=== PATIENT | female | born 1955 | race Caucasian/White ===

== ENCOUNTER 2017-04-01 19:02 | Emergency (ER) | payer OTHER ==
[~2017-04-01] VITALS: Ht 170.2 cm; Wt 88.0 kg
[~2017-04-01 19:02] MED LIST: ASPIRIN EC81 MG PO; ATENOLOL100 MG PO; AUGMENTIN 875-1 EACH PO; BUPROPION XL300 MG PO; CLONAZEPAM1 MG PO; CLONAZEPAM2 MG PO; EFFEXOR XR150 MG PO; EXCEDRIN MIGRA1 EAC1 PO; FLAX SEED OIL1000 MG PO; FOLIC ACID1 MG PO; GABAPENTIN300 MG PO; GABAPENTIN600 MG PO; GEODON80 MG PO; HYDROCODON-ACE1 EA14 PO; K-TAB10 MEQ PO; LANTUS100 UNITS/ SUB-Q; LEVAQUIN500 MG PO; LEVOTHYROXINE88 MCG PO; LISINOPRIL40 MG PO; LORAZEPAM1 MG PO; MAXZIDE 37.5 MG-1 EA PO; MELOXICAM15 MG PO; MULTIVITAMINS1 EAC7 PO; NORCO 10-325 T1 EACH PO; NORCO 5-325 TA1 EACH PO; NORCO 7.5-3251 EACH PO; NORVASC10 MG PO; NOVOLOG100 UNITS/ SUB-Q; OMEGA 3 1,0001 EACH PO; PENICILLIN V P500 MG PO; PERCOCET 10-321 EACH PO; PERIDEX473 ML PO; PIROXICAM20 MG PO; PREDNISONE20 MG PO; PROTONIX40 MG PO; SIMVASTATIN80 MG PO; SYNTHROID150 MCG PO; SYNTHROID175 MCG PO; TRAMADOL HCL50 MG PO; TRIAMTERENE-HC1 EAC1 PO; VENLAFAXINE HCL75 MG PO; ZOFRAN4 MG PO
[2017-04-20] MEDS ORDERED: CARBIDOPA-LEVO1 EACH PO (13:31)
[2017-04-20] MEDS ORDERED: ROPINIROLE HCL1 MG PO (13:32)
[2017-04-20] MEDS ORDERED: TRAZODONE HCL50 MG NG (13:36)
== END 2017-04-01 22:00 | disposition home or self-care (01) ==
LOC: ED 19:02
DX: M79.89 Other specified soft tissue disorders (principal); S60.00XA Contusion of unspecified finger without damage to nail, initial encounter; R20.0 Anesthesia of skin; F31.9 Bipolar disorder, unspecified; I10 Essential (primary) hypertension; E03.9 Hypothyroidism, unspecified; E78.00 Pure hypercholesterolemia, unspecified; E11.9 Type 2 diabetes mellitus without complications; J44.9 Chronic obstructive pulmonary disease, unspecified; Z98.890 Other specified postprocedural states; Z87.891 Personal history of nicotine dependence; Z90.710 Acquired absence of both cervix and uterus; Z91.048 Other nonmedicinal substance allergy status; Z79.899 Other long term (current) drug therapy; Z79.4 Long term (current) use of insulin; Z79.891 Long term (current) use of opiate analgesic; Z79.82 Long term (current) use of aspirin
CPT/HCPCS: 99282

== ENCOUNTER → 2017-04-20 | Emergency (ER) | payer OTHER ==
[~2017-04-20] VITALS: Ht 170.2 cm; Wt 84.4 kg
[~2017-04-20] MED LIST changes: +CARBIDOPA-LEVO1 EACH PO; +ROPINIROLE HCL1 MG PO; +TRAZODONE HCL50 MG NG
--- NOTE | 2017-04-20 20:04 | EKG ---
[facility] [address] [facility] [place], [place] [address] Signed Sinus bradycardia Otherwise normal ECG When compared with ECG of 24-MAR-2017 13:03, No significant change was found Confirmed by ANUM BIRD MD ([id number]) on 04/20/2017 8:04:42 PM Electronically Signed By: ANUM BIRD MD 04/20/172003 PATIENT NAME: RAFAEL VALADEZ Electrocardiogram DATE OF : 53 PHYSICIAN: ANUM BIRD MD REPORT #: [id number] REPORT IS CONFIDENTIAL AND NOT TO BE RELEASED WITHOUT AUTHORIZATION
== END ==
LOC: ED 12:48
DX: E11.649 Type 2 diabetes mellitus with hypoglycemia without coma (principal); F31.9 Bipolar disorder, unspecified; E78.00 Pure hypercholesterolemia, unspecified; I10 Essential (primary) hypertension; E03.9 Hypothyroidism, unspecified; J44.9 Chronic obstructive pulmonary disease, unspecified; Z79.4 Long term (current) use of insulin; Z79.82 Long term (current) use of aspirin; Z90.710 Acquired absence of both cervix and uterus; Z87.891 Personal history of nicotine dependence; Z88.8 Allergy status to other drugs, medicaments and biological substances; Z79.899 Other long term (current) drug therapy
CPT/HCPCS: 80048; 84484; 85025; 93005; 93010; 96360; 99283; J7030

== ENCOUNTER 2017-07-20 20:32 | Emergency (ER) | payer OTHER ==
[~2017-07-20] VITALS: Ht 170.2 cm; Wt 84.5 kg
--- OUTSIDE RECORDS SUMMARY | ~2017-07-20 | XMS | Clinical Summary ---
Demographics + + + | Address | [address] | | | [place] [address] | + + + | Home Phone | | + + + | Preferred Language | Unknown | + + + | Marital Status | Single | + + + | Faith Affiliation | None | + + + | Race | White | + + + | Ethnic Group | Unknown | + + + Author + + + | Author | [facility] | + + + | Organization | [facility] | + + + | Address | Unknown | + + + | Phone | Unavailable | + + + Care Team Providers + +------+ + | Care Java Lead Engineer Name | Role | Phone | + +------+ + PP | Unavailable | + +------+ + Allergies Not on [...] | + + + Plan of Treatment + + + + + | Health Maintenance | Due Date | Last Done | Comments | + + + + + | HIV Screening | | | | | | 9 | | | + + + + + | Tetanus | | | | | | 3 | | | + + + + + | Cervical Cancer | | | | | Screening | 5 | | | + + + + + | Breast Cancer | | | | | Screening | 4 | | | + + + + + | Colon Cancer | | | | | Screening | 4 | | | + + + + + | Zoster Vaccine | | | | | | 4 | | | + + + + + | IMM Influenza (#1) | | | | | | 7 | | | + + + + + Results Not on filefrom Last 3 Months"
--- OUTSIDE RECORDS SUMMARY | ~2017-07-20 | XMS | Clinical Summary ---
Demographics + + + | Address | [address] | | | [place] [address] | + + + | Home Phone | | + + + | Preferred Language | Unknown | + + + | Marital Status | Single | + + + | Mu-Ism Affiliation | None | + + + [...] Team Providers + +------+ + | Care Ampoule Examiner Name | Role | Phone | + [...]
== END 2017-07-20 22:23 | disposition home or self-care (01) ==
LOC: ED 20:32
DX: E11.649 Type 2 diabetes mellitus with hypoglycemia without coma (principal); F31.9 Bipolar disorder, unspecified; I10 Essential (primary) hypertension; E03.9 Hypothyroidism, unspecified; E78.00 Pure hypercholesterolemia, unspecified; J44.9 Chronic obstructive pulmonary disease, unspecified; Z91.048 Other nonmedicinal substance allergy status; Z79.899 Other long term (current) drug therapy; Z79.4 Long term (current) use of insulin; Z79.82 Long term (current) use of aspirin
CPT/HCPCS: 80053; 85025; 99283

== ENCOUNTER 2017-07-31 15:04 | Emergency (ER) | payer OTHER ==
[~2017-07-31] VITALS: Ht 170.2 cm; Wt 84.4 kg
--- NOTE | 2017-07-31 19:04 | EKG ---
[facility] [address] [place] [address] Signed Normal sinus rhythm with sinus arrhythmia Normal ECG When compared with ECG of 20-APR-2017 12:57, Vent. rate has increased BY 35 BPM Confirmed by ANUM BIRD MD ([id number]) on 07/31/2017 7:04:12 PM Electronically Signed By: ANMU BIRD MD 07/31/17 1904 PATIENT NAME: RORYRAFAELRODRICK ROSENBERG Electrocardiogram DATE OF : 53 PHYSICIAN: ANUM BIRD MD REPORT #: [id number] REPORT IS CONFIDENTIAL AND NOT TO BE RELEASED WITHOUT AUTHORIZATION
== END 2017-07-31 18:06 | disposition home or self-care (01) ==
LOC: ED 15:04
DX: E11.649 Type 2 diabetes mellitus with hypoglycemia without coma (principal); F31.9 Bipolar disorder, unspecified; I10 Essential (primary) hypertension; E03.9 Hypothyroidism, unspecified; E78.00 Pure hypercholesterolemia, unspecified; J44.9 Chronic obstructive pulmonary disease, unspecified; Z90.710 Acquired absence of both cervix and uterus; Z91.048 Other nonmedicinal substance allergy status; Z79.899 Other long term (current) drug therapy; Z79.4 Long term (current) use of insulin; Z79.82 Long term (current) use of aspirin
CPT/HCPCS: 80053; 81001; 84484; 85025; 93005; 93010; 99284

== ENCOUNTER 2017-12-30 13:26 | Emergency (ER) | payer OTHER ==
[~2017-12-30] VITALS: Ht 170.2 cm; Wt 84.5 kg
--- OUTSIDE RECORDS SUMMARY | ~2017-12-30 | XMS | Clinical Summary ---
Demographics + + + | Address | [address] | | | [place] [address] | + + + | Home Phone | | + + + | Preferred Language | Unknown | + + + | Marital Status | Single | + + + | Jewish Affiliation | Unknown | + + + | Race | Unknown | + + + | Ethnic Group | Unknown | + + + Author + + + | Author | [facility] | | | and [place] | + + + | Organization | [facility] | | | and [place] | + + + | Address | Unknown | + + + | Phone | Unavailable | + + + Support + + +---------+ + | Name | Relationship | Address | Phone | + + +---------+ + | Michelle Reyes | ECON | Unknown | | + + +---------+ + Care Team Providers + +------+ + | Care Manager Er Name | Role | Phone | + +------+ + | Antwon Salinas | PP | | | MD | | | + +------+ + Allergies No Known Allergies Current Medications + + +---------+---------+------+------+-------+ | Prescription | Sig. | Disp. | Refills | Star | End | Statu | | | | | | t | Date | s | | | | | | Date | | | + + +---------+---------+------+------+-------+ | levothyroxine | Take 175 mcg by | | | 09/13 | | Activ | | (SYNTHROID) 175 MCG | mouth Daily. | | | 6/20 | | e | | tablet | | | | 18 | | | + + +---------+---------+------+------+-------+ | piroxicam | Take 20 mg by mouth | | | 09/13 | | Activ | | (FELDENE) 20 MG | Daily. | | | 03/02 | | e | | capsule | | | | 18 | | | + + +---------+---------+------+------+-------+ | | Take by mouth | | | 09/13 | | Activ | | triamterene-hydrochl | Daily. | | | 03/02 | | e | | orothiazide | | | | 18 | | | | (MAXZIDE-25) 37.5-25 | | | | | | | | mg per tablet | | | | | | | + + +---------+---------+------+------+-------+ | folic acid 1 mg | Take 1 mg by mouth | | | / | | Activ | | tablet | Daily. | | | 03/02 | | e | | | | | | 18 | | | + + +---------+---------+------+------+-------+ | atenolol | Take 25 mg by mouth | | | /1 | | Activ | | (TENORMIN) 25 mg | Daily. | | | 620 | | e | | tablet | | | | 18 | | | + + +---------+---------+------+------+-------+ | lisinopril | Take 40 mg by mouth | | | 09/13 | | Activ | | (PRINIVIL,ZESTRIL) | Daily. | | | 20 | | e | | 40 MG tablet | | | | 18 | | | + + +---------+---------+------+------+-------+ | simvastatin | Take 40 mg by mouth | | | 09/13 | | Activ | | (ZOCOR) 40 mg tablet | Daily. | | | 620 | | e | | | | | | 18 | | | + + +---------+---------+------+------+-------+ | DULoxetine | Take 60 mg by mouth | | | | | Activ | | (CYMBALTA) [address] | Daily. | | | | | e | | capsule | | | | | | | + + +---------+---------+------+------+-------+ | carbidopa-levodopa | Take by mouth | | 0 | 02/0 | | Activ | | (SINEMET) 10-100 mg | Daily. | | | 20 | | e | | per tablet | | | | 18 | | | + + +---------+---------+------+------+-------+ | clonazePAM | Take 0.5 mg by mouth | | 0 | 01/3 | | Activ | | (KLONOPIN) 0.5 mg | as needed. | | | 20 | | e | | tablet | | | | 18 | | | + + +---------+---------+------+------+-------+ | ADVAIR DISKUS | | | 0 | 11/0 | | Activ | | 250-50 MCG/DOSE | | | | 06/02 | | e | | diskus inhaler | | | | 17 | | | + + +---------+---------+------+------+-------+ | | take 1 or 2 tablets | | 0 | 01/3 | | Activ | | HYDROcodone-acetamin | by mouth every 4 to | | | 0/20 | | e | | ophen (NORCO) | 6 hours if needed | | | 18 | | | | 7.5-325 mg per | | | | | | | | tablet | | | | | | | + + +---------+---------+------+------+-------+ | NOVOLOG 100 | | | | 11/1 | | Activ | | UNIT/ML injection | | | | 6/20 | | e | | | | | | 17 | | | + + +---------+---------+------+------+-------+ | LANTUS 100 UNIT/ML | | | | 12/2 | | Activ | | injection (vial) | | | | 6/20 | | e | | | | | | 17 | | | + + +---------+---------+------+------+-------+ | ATROVENT HFA 17 | | | 0 | 01/1 | | Activ | | MCG/ACT inhaler | | | | 0/20 | | e | | | | | | 18 | | | + + +---------+---------+------+------+-------+ | potassium chloride | | | | 01/1 | | Activ | | (KLOR-CON) 10 mEq | | | | 6/20 | | e | | CR tablet | | | | 18 | | | + + +---------+---------+------+------+-------+ | rOPINIRole | | | 0 | 01/1 | | Activ | | (REQUIP) 1 mg tablet | | | | 0/20 | | e | | | | | | 18 | | | + + +---------+---------+------+------+-------+ | traZODone | | | 0 | 01/2 | | Activ | | (DESYREL) 50 mg | | | | 4/20 | | e | | tablet | | | | 18 | | | + + +---------+---------+------+------+-------+ | busPIRone (BUSPAR) | take 1/2 tablet by | | 0 | 10/15 | | Activ | | 10 MG tablet | mouth twice a day | | | 04/01 | | e | | | for 5 days then take | | | 18 | | | | | 1 table... (REFER | | | | | | | | TO PRESCRIPTION | | | | | | | | NOTES). | | | | | | + + +---------+---------+------+------+-------+ | gabapentin | Take 3 capsules by | 270 | 2 | 11/11 | | Activ | | (NEURONTIN) 300 mg | mouth 3 times daily. | capsule | | 03/02 | | e | | capsule | | | | 18 | | | + + +---------+---------+------+------+-------+ Active Problems + + + | Problem | Noted Date | + + + | Confusion | 11/26/2017 | + + + | Tremor | 10/21/2017 | + + + Encounters +--------+ + + + + | Date | Type | Specialty | Care Team | Description | +--------+ + + + + | 11/30/ | Telephone | | Christen Castellano RN | Results (EEG) | | 2018 | | | | | +--------+ + + + + | 11/26/ | Hospital | | Malaika Martines | Tremor | | 2017 | Encounter | | MD Cain | | +--------+ + + + + | 11/26/ | Office | | Malaika Martines | Tremor (Primary Dx); | | 2017 | Visit | | MD Cain | Confusion | +--------+ + + + + | 10/27/ | Telephone | | Malaika Martines | Lab Results | | 2017 | | | MD Cain | | +--------+ + + + + | 10/22/ | Telephone | | Christen Castellano RN | Lab Results | | 2017 | | | | | +--------+ + + + + | 10/21/ | Office | | Malaika Martines | Tremor | | 2017 | Visit | | MD Cain | | +--------+ + + + + from Last 3 Months Family History + + +------+ + | Medical History | Relation | Name | Comments | + + +------+ + | Dementia | Father | | | + + +------+ + | Heart disease | Mother | | | + + +------+ + + +------+ + + | Relation | Name | Status | Comments | + +------+ + + | Father | | | | + +------+ + + | Mother | | | | + +------+ + + Social History + + + +--------+ + | Tobacco Use | Types | Packs/Day | Years | Date | | | | | Used | | + + + +--------+ + | Former Smoker | Cigarettes | 1.5 | | 1989 | + + + +--------+ + + +---+---+---+ | Smokeless Tobacco: | | | | | Never Used | | | | + +---+---+---+ + + +---------+ + | Alcohol Use | Drinks/We | oz/Week | Comments | | | ek | | | + + +---------+ + | No | | | | + + +---------+ + + + + | Sex Assigned at | Date Recorded | | | | + + + | Not on file | | + + + Last Filed Vital Signs + + + + | Vital Sign | Reading | Time Taken | + + + + | Blood Pressure | 163/87 | 11/26/2017 1027 PDT | + + + + | Pulse | 70 | 11/26/20171026 PDT | + + + + | Temperature | - | - | + + + + | Respiratory Rate | 18 | 11/26/20171026 PDT | + + + + | Oxygen Saturation | 95% | 11/26/20171026 PDT | + + + + | Inhaled Oxygen | - | - | | Concentration | | | + + + + | Weight | 81.9 kg (180 lb 9.6 | 11/26/20171026 PDT | | | oz) | | + + + + | Height | 170.2 cm (5' 7") | 11/26/2017 1027 PDT | + + + + | Body Mass Index | 28.29 | 11/26/20177 PDT | + + + + Plan of Treatment +--------+---------+ + + + | Date | Type | Specialty | Care Team | Description | +--------+---------+ + + + | 01/27/ | Office | | Malaika Martines | | | 2018 | Visit | | MD Cain [address] | | | | | | [place] | | | | | | [place] [address] | | | | | | [phone] | | | | | | | | +--------+---------+ + + + + + + + + | Health Maintenance | Due Date | Last Done | Comments | + + + + + | Hepatitis C | | | | | Screening | 4 | | | + + + + + | Vaccine: | | | | | Dtap/Tdap/Td (1 - | 3 | | | | Tdap) | | | | + + + + + | CERVICAL CANCER | | | | | SCREENING (PAP EVERY | 5 | | | | 3 YEARS 21-64 ) | | | | + + + + + | BREAST CANCER | | | | | SCREENING (MAMM Q2 | 4 | | | | YEARS 50-74) | | | | + + + + + | COLON CANCER | | | | | SCREENING | 4 | | | | (COLONOSCOPY EVERY | | | | | 10 YEARS 50-75) | | | | + + + + + | Vaccine: Zoster (#1) | | | | | | 4 | | | + + + + + | Vaccine: Influenza | | | | | (Season Ended) | 8 | | | + + + + + Results EEG awake or drowsy routine (11/29/2017 0948) + + | Narrative | + + | Malaika Martines MD 11/29/2017 9:49 Name:Jennyfer Cochran :1955 | | DATE OF SERVICE: 11/26/2017 STUDY: ELECTROENCEPHALOGRAM | | INTRODUCTION: This is a digital EEG recording with a record length of 25 | | minutes. The patient is a 62 y.o. year-old female with tremors and confusion. | | BACKGROUND RHYTHM: The patient has a well defined background pattern of 9 | | Hz. This activity is more prominent posteriorly, symmetrical, and | | synchronous. It attenuates with eye opening and returns with eye | | closing. Drowsiness is appreciated by the attenuation and slowing of the patient's | | background activities. ABNORMAL POTENTIALS: No focal slow waves or epileptiform | | discharges are seen. HYPERVENTILATION/PHOTIC STIMULATION: Hyperventilation and | | photic stimulation were without significant effect. IMPRESSION: Normal awake | | and drowsy EEG. Thank you for the opportunity to participate in the care of this | | patient. Malaika Martines MD3/9:48 Electronically signed | + + [facility] Lab Referral (10/21/2017 1443) + + + + | Component | Value | Ref Range | + + + + | Result | Comment: See Media tab for scanned image. | | + + + + + + + | Specimen | Performing Laboratory | + + + | Blood | REFERENCE LAB [facility] [address] | | | [place] [address] | + + + TSH (10/21/2017 1442) + +-------+ + | Component | Value | Ref Range | + +-------+ + | TSH | 1.64 | 0.36 - 3.74 uIU/mL | + +-------+ + + + + | Specimen | Performing Laboratory | + + + | Blood | [facility] [address] [place], | | | [place] [address] | + + + Comprehensive Metabolic Panel (10/21/2017 1442) + + + + | Component | Value | Ref Range | + + + + | NA | 140 | 132 - 143 mmol/L | + + + + | K | 3.8 | 3.3 - 4.9 mmol/L | + + + + | CL | 101 | 95 - 108 mmol/L | + + + + | CO2 | 34 | 23 - 34 mmol/L | + + + + | ANION GAP | 5 (L) | 7 - 16 mmol/L | + + + + | GLUCOSE | 146 (H) | 70 - 110 mg/dL | + + + + | BUN | 15 | 5 - 26 mg/dL | + + + + | Creatinine, | 0.77 | 0.60 - 1.30 mg/dL | | Serum/Plasma | | | + + + + | eGFR if not | >60Comment: GLOMERULAR FILTRATION | >=60 mL/min/1.73m2 | | BERMUDIAN | RATE,ESTIMATED mL/min/1.32g5Yetp than | | | | 60 Chronic kidney disease,if found over | | | | a 3-month period.Less than 15 Kidney | | | | failureFor Americans,multiply the | | | | calculated GFR by 1.21. | | | | | | | | | | + + + + | CALCIUM | 9.1 | 8.3 - 10.0 mg/dL | + + + + | ALBUMIN | 3.6 | 3.0 - 4.5 g/dL | + + + + | Bilirubin Total | 0.5 | 0.0 - 1.2 mg/dL | + + + + | Total protein | 7.0 | 6.6 - 8.5 g/dL | + + + + | AST | 26 | 0 - 38 U/L | + + + + | ALT | 26 | 14 - 59 U/L | + + + + | ALK PHOS | 73 | 46 - 116 U/L | + + + + | GLOBULIN | 3.4 | g/dL | + + + + | Albumin/Globulin | 1.1 | | | ratio | | | + + + + | BUN/CREA | 19.5 | 7.0 - 24.0 | + + + + + + + | Specimen | Performing Laboratory | + + + | Blood | [facility] [address] [place], | | | [place] [address] | + + + from Last 3 Months Insurance + +--------+ +--------+ +---------+ | Payer | Benefi | Subscriber | Type | Phone | Address | | | t Plan | ID | | | | | | / | | | | | | | Group | | | | | + +--------+ +--------+ +---------+ | [employer] | MODA | [phone] | Medica | [phone] | | MEDICAID HMO | HEALTH | | id | [id number] | | | | [place] | | | | | | | [place]MO [place] | | | | | + +--------+ +--------+ +---------+ + +--------+ +--------+ + + | Guarantor Name | Accoun | Relation to | Date | Phone | Billing Address | | | t Type | Patient | of | | | | | | | | | | + +--------+ +--------+ + + | JENNYFER COCHRAN | Person | Self [birth year] | Home: | [address] | | | al/Fam | | 4 [phone] | [address] [place] | | | [place] | | | [phone] | + +--------+ +--------+ + +
--- OUTSIDE RECORDS SUMMARY | ~2017-12-30 | XMS | Encounter Summary ---
Demographics + + + | Address | [address] | | | [place] [address] | + + + | Home Phone | | + + + | Preferred Language | Unknown | + + + | Marital Status | Single | + + + | Presybeterian Affiliation | Unknown | + + + | Race | Unknown | + + + | Ethnic Group | Unknown | + + + Author + + + | Author | [facility] | | | and [place] | + + + | Organization | [facility] | | | [...] Team Providers + +------+ + | Care Delinquency Counselor Name | Role | Phone | + +------+ + | Antwon Salinas | PCP | | | MD | | | + +------+ + Encounter Details +--------+ + + + + | Date | Type | Department | Care Team | Description | +--------+ + + + + | 11/26/ | [facility] | Malaika Martines | Tremor | | 2018 | Encounter | HOSPITAL RESPIRATORY | MD Cain [address] | | | | | THERAPY [address] | [place] | | | | | [address] [place], [place] | [place] [address] | | | | | [address] | [phone] | | | | | [phone] | | | +--------+ + + + + Social History + + + [...] on file | | + + + as of this encounter Medications at Time of Discharge + + +---------+---------+ + + | Medication | Sig. | Disp. | Refills | Start | End Date | | | | | | Date | | + + +---------+---------+ + + | ADVAIR DISKUS | | | 0 | 07/22/20 | | | 250-50 MCG/DOSE | | | | 17 | | | diskus inhaler | | | | | | + + +---------+---------+ + + | atenolol | Take 25 mg by mouth | | | 09/28/19 | | | (TENORMIN) 25 mg | Daily. | | | 18 | | | tablet | | | | | | + + +---------+---------+ + + | ATROVENT HFA 17 | | | 0 | 09/22/19 | | | MCG/ACT inhaler | | | | 18 | | + + +---------+---------+ + + | busPIRone (BUSPAR) | take 1/2 tablet by | | 0 | 11/09/19 | | | 10 MG tablet | mouth twice a day | | | 18 | | | | for 5 days then take | | | | | | | 1 table... (REFER | | | | | | | TO PRESCRIPTION | | | | | | | NOTES). | | | | | + + +---------+---------+ + + | carbidopa-levodopa | Take by mouth | | 0 | 10/18/19 | | | (SINEMET) 10-100 mg | Daily. | | | 18 | | | per tablet | | | | | | + + +---------+---------+ + + | clonazePAM | Take 0.5 mg by mouth | | 0 | 10/13/19 | | | (KLONOPIN) 0.5 mg | as needed. | | | 18 | | | tablet | | | | | | + + +---------+---------+ + + | DULoxetine | Take 60 mg by mouth | | | | | | (CYMBALTA) [address] | Daily. | | | | | | capsule | | | | | | + + +---------+---------+ + + | folic acid 1 mg | Take 1 mg by mouth | | | 09/28/19 | | | tablet | Daily. | | | 18 | | + + +---------+---------+ + + | gabapentin | Take 3 capsules by | 270 | 2 | 11/27/19 | | | (NEURONTIN) 300 mg | mouth 3 times daily. | capsule | | 18 | | | capsule | | | | | | + + +---------+---------+ + + | | take 1 or 2 tablets | | 0 | 10/12/19 | | | HYDROcodone-acetamin | by mouth every 4 to | | | 18 | | | ophen (NORCO) | 6 hours if needed | | | | | | 7.5-325 mg per | | | | | | | tablet | | | | | | + + +---------+---------+ + + | LANTUS 100 UNIT/ML | | | | 09/07/20 | | | injection (vial) | | | | 17 | | + + +---------+---------+ + + | levothyroxine | Take 175 mcg by | | | 09/28/19 | | | (SYNTHROID) 175 MCG | mouth Daily. | | | 18 | | | tablet | | | | | | + + +---------+---------+ + + | lisinopril | Take 40 mg by mouth | | | 09/28/19 | | | (PRINIVIL,ZESTRIL) | Daily. | | | 18 | | | 40 MG tablet | | | | | | + + +---------+---------+ + + | NOVOLOG 100 | | | | 07/29/20 | | | UNIT/ML injection | | | | 17 | | + + +---------+---------+ + + | piroxicam | Take 20 mg by mouth | | | 09/28/19 | | | (FELDENE) 20 MG | Daily. | | | 18 | | | capsule | | | | | | + + +---------+---------+ + + | potassium chloride | | | | 01/16/20 | | | (KLOR-CON) 10 mEq | | | | 18 | | | CR tablet | | | | | | + + +---------+---------+ + + | rOPINIRole | | | 0 | 09/22/19 | | | (REQUIP) 1 mg tablet | | | | 18 | | + + +---------+---------+ + + | simvastatin | Take 40 mg by mouth | | | 09/28/19 | | | (ZOCOR) 40 mg tablet | Daily. | | | 18 | | + + +---------+---------+ + + | traZODone | | | 0 | 10/06/19 | | | (DESYREL) 50 mg | | | | 18 | | | tablet | | | | | | + + +---------+---------+ + + | | Take by mouth | | | 09/28/19 | | | triamterene-hydrochl | Daily. | | | 18 | | | orothiazide | | | | | | | (MAXZIDE-25) 37.5-25 | | | | | | | mg per tablet | | | | | | + + +---------+---------+ + + as of this encounter Progress Notes Harjit Esqueda, ANCELMO - 11/26/2017 1704 PDTStandard awake and drowsy EEG performed. Patient tolerated test well. in this encounter Plan of Treatment +--------+---------+ + + + | Date | Type | Specialty | Care Team | Description | +--------+---------+ + + + | 01/27/ | Office | Neurology | Malaika Martines | | | 2018 | Visit | | MD Cain [address] | | | | | | [place] | | | | | | [place] [address] | | | | | | [phone] | | | | | | | | +--------+---------+ + + + as of this encounter Results EEG awake or drowsy routine (11/29/2017 [...] of this | | patient. Malaika Martines MD11/29/20179:48 Electronically signed | + + in this encounter Visit Diagnoses + + | Diagnosis | + + | Tremor | + + | Abnormal involuntary movements | + +"
--- OUTSIDE RECORDS SUMMARY | ~2017-12-30 | XMS | Encounter Summary ---
Demographics + + + | Address | [address] | | | [place] [address] | + + + | Home Phone | | + + + | Preferred Language | Unknown | + + + | Marital Status | Single | + + + | Amish Affiliation | Unknown | + + + | Race | Unknown | + + + | Ethnic Group | Unknown | + + + Author + + + | Author | [facility] | | | and [place] | + + + | Organization | [facility] | | | [...] Team Providers + +------+ + | Care Glazier Helper Name | Role | Phone | + +------+ + | Antwon Salinas | PCP | | | MD | | | + +------+ + Reason for Visit + + + | Reason | Comments | + + + | Lab Results | | + + + Encounter Details +--------+ + + + + | Date | Type | Department | Care Team | Description | +--------+ + + + + | 10/27/ | Telephone | [place] [facility] | Malaika Martines | Lab Results | | 2018 | | HOSPITAL NEUROLOGY | MD Cain [address] | | | | | CLINIC [address] | [place] | | | | | [address] [place], | [place] [address] | | | | | [place] [address] | [phone] | | | | | [phone] | | | +--------+ + + + [...] + + + as of this encounter Plan of Treatment +--------+---------+ + + + | Date | Type | Specialty | Care Team | Description | +--------+---------+ + + + | 01/27/ | Office | Neurology | Malaika Martines | | | 2018 | Visit | | MD Cain [address] | | | | | | [place] | | | | | | [place] [address] | | | | | | [phone] | | | | | | | | +--------+---------+ + + + as of this encounter Visit Diagnoses Not on filein this encounter"
--- OUTSIDE RECORDS SUMMARY | ~2017-12-30 | XMS | Clinical Summary ---
Demographics + + + | Address | [address] | | | [place] [address] | + + + | Home Phone | | + + + | Preferred Language | Unknown | + + + | Marital Status | Single | + + + | Roman Catholic Affiliation | Unknown | + + + | Race | Unknown | + + + | Ethnic Group | Unknown | + + + Author + + + | Author | [facility] | | | and [place] | + + + | Organization | [facility] | | | and [...] Team Providers + +------+ + | Care Wire Rope Sling Maker Name | Role | Phone | + [...] | | | | | [place] [address] | | | | | | [phone] | | | | | | | [...] Martines MD3/9:48 Electronically signed | + + [facility] [place] [place] Lab Referral (10/21/2017 1443) + + + + | Component | Value | Ref Range | + + + + | Result | Comment: See Media tab for scanned image. | | + + + + + + + | Specimen | Performing Laboratory | + + + | Blood | REFERENCE LAB [facility] [address] | | | [place] [address] | + + + TSH (10/21/2017 1442) + +-------+ + | Component | Value | Ref Range | + +-------+ + | TSH | 1.64 | 0.36 - 3.74 uIU/mL | + +-------+ + + + + | Specimen | Performing Laboratory | + + + | Blood | [facility] [address] [place], | | | [place] [address] | + + + Comprehensive Metabolic Panel [...] GLOMERULAR FILTRATION | >=60 mL/min/1.73m2 | | MEXICAN | RATE,ESTIMATED mL/min/1.62f0Acfe than | | | | 60 Chronic [...] | + + + | Blood | [facility] [address] [place], | | | [place] [address] | + + + from Last 3 [...] Self | [birth year] | Home: | [address] | | | al/Fam | | 4 [phone] [address] [place] | | | [place] | | | [phone] | [address] | + +--------+ +--------+ + +
--- OUTSIDE RECORDS SUMMARY | ~2017-12-30 | XMS | Encounter Summary ---
Demographics + + + | Address | [address] | | | [place] [address] | + + + | Home Phone | | + + + | Preferred Language | Unknown | + + + | Marital Status | Single | + + + | Baptist Affiliation | Unknown | + + + | Race | Unknown | + + + | Ethnic Group | Unknown | + + + Author + + + | Author | [facility] | | | and Earlana | + + + | Organization | [facility] | | | [...] Team Providers + +------+ + | Care Cartographic Aide Name | Role | Phone | + [...] + + | 10/22/ | Telephone | [place] [facility] | Christen Castellano RN | Lab Results | | 2018 | | [facility] NEUROLOGY | | | | | | CLINIC [address] | | | | | | [address] [place], | | | | | | [place] [address] | | | | | | [phone] | | | +--------+ + + + [...] [address] | | | | | | [place], [place] [address] | | | | | | [phone] | | | | | | | | +--------+---------+ + + + as of this encounter Visit Diagnoses Not on filein this encounter"
--- OUTSIDE RECORDS SUMMARY | ~2017-12-30 | XMS | Encounter Summary ---
Demographics + + + | Address | [address] | | | [place] [address] | + + + | Home Phone | | + + + | Preferred Language | Unknown | + + + | Marital Status | Single | + + + | Buddhist Affiliation | Unknown | + + + | Race | Unknown | + + + | Ethnic Group | Unknown | + + + Author + + + | Author | [facility] | | | and Earlana | + + + | Organization | [facility] | | | [...] Team Providers + +------+ + | Care Community Health Advisor Name | Role | Phone | + [...] | | | | | | [place] [address] | | | | | | [phone] | | | +--------+ + + + [...] | | | | | [place] [address] | | | | | | [phone] | | | | | | | | +--------+---------+ + + + as of this encounter Visit Diagnoses Not on filein this encounter"
--- OUTSIDE RECORDS SUMMARY | ~2017-12-30 | XMS | Clinical Summary ---
Demographics + + + | Address | [address] | | | [address] | | | [place] [address] | + + + | Home Phone | | + + + | Preferred Language | Unknown | + + + | Marital Status | Single | + + + | Judaism Affiliation | Unknown | + + + | Race | Unknown | + + + | Ethnic Group | Unknown | + + + Author + + + | Author | [facility] | + + + | Organization | [facility] | + + + | Address | Unknown | + + + | Phone | Unavailable | + + + Support + + + + + | Name | Relationship | Address | Phone | + + + + + | Julius Cochran [place] | ECON | [address] | | | | | [place] [facility] [place] | | | | | [address] | | + + + + + Care Team Providers + +------+ + | Care Project Controls Scheduler Name | Role | Phone | + +------+ + | [facility], [facility] | PP | Unavailable | | Community [...]
--- OUTSIDE RECORDS SUMMARY | ~2017-12-30 | XMS | Encounter Summary ---
Demographics + + + | Address | [address] | | | [place] [address] | + + + | Home Phone | | + + + | Preferred Language | Unknown | + + + | Marital Status | Single | + + + | Adventist Affiliation | Unknown | + + + | Race | Unknown | + + + | Ethnic Group | Unknown | + + + Author + + + | Author | [facility] | | | and Earlana | + + + | Organization | [facility] | | | [...] Team Providers + +------+ + | Care Pasteuriser Operator Name | Role | Phone | [...] | [address], | [place] [address] | | | | | [place] [address] | [phone] | | | | | [phone] | | | +--------+ + + + [...] | | | | | [place] [address] | | | | | | [phone] | | | | | | | | +--------+---------+ + + + as of this encounter Visit Diagnoses Not on filein this encounter"
--- OUTSIDE RECORDS SUMMARY | ~2017-12-30 | XMS | Encounter Summary ---
Demographics + + + | Address | [address] | | | [place] [address] | + + + | Home Phone | | + + + | Preferred Language | Unknown | + + + | Marital Status | Single | + + + | Tenriism Affiliation | Unknown | + + + | Race | Unknown | + + + | Ethnic Group | Unknown | + + + Author + + + | Author | [facility] | | | and Earlana | + + + | Organization | [facility] | | [...] Team Providers + +------+ + | Care Editor City Name | Role | Phone | + +------+ + | Antwon Salinas | PCP | | | MD | | | + +------+ + Reason for Referral Diagnostic/Screening (Routine) + +--------+ + + + + | Status | Reason | Specialty | Diagnoses / | Referred By | Referred To | | | | | Procedures | Contact | Contact | + +--------+ + + + + | Authorized | | Radiology | Diagnoses | [facility], | [facility] | | | | | Tremor | Malaika Barlow | HOSPITAL | | | | | Confusion | MD [address] | | | | | Procedures | [place] | [place] | | | | | MRI Brain wo | [address], [address] | [place], [place] | | | | | Contrast | [place], | [address] | | | | | | [place] [address] | Phone: | | | | | | Phone: | [phone] | | | | | | [phone] | Fax: | | | | | | Fax: | [phone] | | | | | | [phone] | | + +--------+ + + + + Reason for Visit +---------+ + | Reason | Comments | +---------+ + | Tremors | | +---------+ + Encounter Details +--------+---------+ + + + | Date | Type | Department | Care Team | Description | +--------+---------+ + + + | 11/26/ | Office | [place] [facility] | Malaika Martines | Tremor (Primary Dx); | | 2018 | Visit | HOSPITAL NEUROLOGY | MD Cain [address] | Confusion | | | | CLINIC [address] | [place] | | | | | [address] [place], | [place] [address] | | | | | [place] [address] | [phone] | | | | | [phone] | | | +--------+---------+ + + + [...] | Body Mass Index | 28.29 | 11/26/2017 1027 PDT | + + + + in this encounter Instructions Patient Instructions - Malaika Martines MD - 11/26/2017 1100 PDTYou have the following tests/procedures ordered. Brain MRI no contrast at [facility] Medication Instructions: Discontinue carbidopa/levodopa; decrease gabapentin to 900 mg 2 ti mes a day *Any questions, please call Dr. Martines's office at Patient advised of their right to have diagnostic testing, health care treatment, and/or se rvices at a facility other than [facility]. in this encounter Progress Notes Malaika Martines MD - 11/26/2017 1100 PDTFormatting of this note may be different from the original. Patient: Jennyfer Cochran Medical Record: [id number] Date of Services: 11/26/2017 Referring Doctor: Antwon Salinas MD Chief Complaint Patient presents with Tremors HISTORY OF PRESENT ILLNESS: This is a follow-up on a 62-year-old female who comes back to the neurology clinic amber g her tremors. I first met her on 10/21/2017. She presented with tremors which she thought was secondary to stress and anxiety. Blood work done was remarkable for increased glucose. TSH was normal. Liver and function tests were normal. Gabapentin level was appropriate for her current dose. However, she tel ls me now that she is taking gabapentin 1200 mg 2 times a day rather than 2 times a day. Her MRI was not approved by her insurance company. She has not had her EEG. The patient also has not RLS and she is currently on Sinemet and Requip at bedtime. She fe els that Sinemet is not helpful but Requip is. REVIEW OF SYSTEMS: General: Positive for weight loss HEENT: Positive for vision changes and tinnitus Cardiovascular: Positive for shortness of breath on exertion Respiratory: No cough Gastrointestinal: No vomiting Musculoskeletal: Positive for joint pains and stiffness, back pain, neck pain Skin: No rash Hematologic: No [...] Daily. ATROVENT HFA 17 MCG/ACT inhaler 0 busPIRone (BUSPAR) 10 MG tablet take 1/2 tablet by mouth twice a day for 5 days then ta ke 1 table... (REFER TO PRESCRIPTION NOTES). 0 carbidopa-levodopa (SINEMET) 10-100 mg per tablet Take by mouth Daily. 0 clonazePAM (KLONOPIN) 0.5 mg tablet Take 0.5 mg by mouth as needed. 0 DULoxetine (CYMBALTA) [address] capsule Take 60 mg by mouth Daily. folic acid 1 mg tablet Take 1 mg by mouth Daily. gabapentin (NEURONTIN) 300 mg capsule Take 3 capsules by mouth 3 times daily. 270 capsu le 2 HYDROcodone-acetaminophen (NORCO) 7.5-325 mg per tablet take [...] disease Mother Dementia Father PHYSICAL EXAMINATION: BP 163/87 | Pulse 70 | Resp 18 | Ht 1.702 m (5' 7") | Wt 81.9 kg (180 lb 9.6 oz) | SpO 2 95% | BMI 28.29 kg/m Neck is supple. Lungs are clear. Heart sounds are within normal limits. Abdomen is soft and non-tender, There is no extremity cyanosis. NEUROLOGIC EXAMINATION: MENTAL STATUS: The patient is awake, alert, and oriented to time, place, and person. Lina steve is fluent. Though memory is intact and she is able to follow commands, during the conver sation, I feel that she is somewhat confused about ongoing events. CRANIAL NERVES: Funduscopy revealed distinct disc margins. There are no exudates or hemor rhages noted. Pupils are 3-4 mm, equal and reactive to light and accommodation. Extraocular muscle movements are intact. There are no visual field cuts. There is no nystagmus. There is no facial asymmetry. Facial sensation is intact. Palate elevates symmetrically. Streng th in the trapezius and sternocleidomastoid muscles is normal. Tongue is midline on protrusi on. MOTOR EXAMINATION: Strength is 5/5 throughout. Tone is normal. SENSORY EXAMINATION: Intact to light touch, pin prick, vibration, and proprioception. The re is no extinction on double simultaneous stimulation. DEEP TENDON REFLEXES: 1+ and symmetric. PLANTAR RESPONSES: Downgoing bilaterally GAIT: Gait and station are normal. CEREBELLAR EXAMINATION: There is no dysmetria on gigeaa-mm-kzyb test. Miscellaneous: There is no cogwheeling noted. There is a very mild intermittent upper extr emity postural tremor. IMPRESSION: 1. Tremors, likely anxiety related 2. Confusion 3. RLS 4. Schizophrenia PLAN AND RECOMMENDATIONS: I went over the patient's blood work results with her again. I am reordering her brain MRI without contrast as I feel the patient is confused. She will have her EEG today. She will start taking Sinemet at night. I am also decreasing her gabapentin dose to 900 mg twice a day. I will see her back in 2 months. More than 50% of this 30 minute visit was spent on going over her plan of care. Thank you for the opportunity to participate in the care of this patient. Malaika Martines MD11/26/201710:59 Electronically signed This note was transcribed using [...] | | | | | [address] [place] | | | | | | [place] [address] | | | | | | [phone] | | | | | | | | +--------+---------+ + + + + +--------+ + + | Name | Priori | Associated Diagnoses | Order Schedule | | | ty | | | + +--------+ + + | MRI Brain wo Contrast | Routin | Tremor Confusion | Expected: | | | e | | 11/26/2017, Expires: | | | | | 11/26/2018 | + +--------+ + + as of this encounter Visit Diagnoses + + | Diagnosis | + + | Tremor - Primary | + + | Abnormal involuntary movements | + + | Confusion | + + | Unspecified psychosis | + +
--- OUTSIDE RECORDS SUMMARY | ~2017-12-30 | XMS | Clinical Summary ---
Demographics + + + | Address | [address] | | | [address] | | | [place] [address] | + + + | Home Phone | | + + + | Preferred Language | Unknown | + + + | Marital Status | Single | + + + | Confucianism Affiliation | Unknown | + + + | Race | Unknown | + + + | Ethnic Group | Unknown | + + + Author + + + | Author | [facility] | + + + | Organization | [facility] | + + + | Address | Unknown | + + + | Phone | Unavailable | + + + Support + + + + + | Name | Relationship | Address | Phone | + + + + + | Julius Cochran [place] | ECON | [address] | | | | | [place] [facility] [place] | | | | | [address] | | + + + + + Care Team Providers + +------+ + | Care Employment Evaluator/Case Manager Name | Role | Phone | + +------+ + | [facility], [facility] | PP | Unavailable | | Community [...]
--- OUTSIDE RECORDS SUMMARY | ~2017-12-30 | XMS | Clinical Summary ---
Demographics + + + | Address | [address] | | | [place] [address] | + + + | Home Phone | | + + + | Preferred Language | Unknown | + + + | Marital Status | Single | + + + | Christian Affiliation | NON | + + + [...] Team Providers + +------+ + | Care Water Pumper Name | Role | Phone | + +------+ + PP | Unavailable | + +------+ + Source Comments JOAQUINA is fully live on both [facility] and [facility] InPatient.[facility] Allergies No Known Allergies Current Medications [...]
--- OUTSIDE RECORDS SUMMARY | ~2017-12-30 | XMS | Encounter Summary ---
Demographics + + + | Address | [address] | | | [place] [address] | + + + | Home Phone | | + + + | Preferred Language | Unknown | + + + | Marital Status | Single | + + + | Anglican Affiliation | Unknown | + + + | Race | Unknown | + + + | Ethnic Group | Unknown | + + + Author + + + | Author | [facility] | | | and Earlana | + + + | Organization | [facility] | [...] Team Providers + +------+ + | Care Scientific Writer Name | Role | Phone | + [...] | | | | | | [place] [address] | | | | | | [phone] | | | +--------+ + + + [...] | | | | | [place] [address] | | | | | | [phone] | | | | | | | | +--------+---------+ + + + as of this encounter Visit Diagnoses Not on filein this encounter"
--- OUTSIDE RECORDS SUMMARY | ~2017-12-30 | XMS | Encounter Summary ---
Demographics + + + | Address | [address] | | | [place] [address] | + + + | Home Phone | | + + + | Preferred Language | Unknown | + + + | Marital Status | Single | + + + | Spiritism Affiliation | Unknown | + + + | Race | Unknown | + + + | Ethnic Group | Unknown | + + + Author + + + | Author | [facility] | | | and Earlana | + + + | Organization | [facility] | | | [...] Providers + +------+ + | Care Coal Getter Name | Role | Phone | + [...] | [address], [place] | [place] [address] | | | | | [address] | [phone] | | | | | [phone] | | | +--------+ + + + [...] of this encounter Progress Notes Harjit Esqueda, ACNELMO - 11/26/2017 1704 PDTStandard awake and drowsy [...] | | | | | [place] [address] | | | | | | [phone] | | | | | | | [...]
--- OUTSIDE RECORDS SUMMARY | ~2017-12-30 | XMS | Encounter Summary ---
Demographics + + + | Address | [address] | | | [place] [address] | + + + | Home Phone | | + + + | Preferred Language | Unknown | + + + | Marital Status | Single | + + + | Episcopalian Affiliation | Unknown | + + + | Race | Unknown | + + + | Ethnic Group | Unknown | + + + Author + + + | Author | [facility] | | | and Earlana | + + + | Organization | [facility] | | | [...] Team Providers + +------+ + | Care Oracle Ebs Consultant Name | Role | Phone | [...] | | | | | Procedures | [place], | [place], [place] | | | | | Evaluate and | [place] | [address] Phone: | | | | | Treat | [address] | [phone] | | | | | | Phone: | Fax: | | | | | | [phone] | [phone] | | | | | | Fax: | | | | | | | [phone] | | +--------+ + + + + + Encounter Details +--------+---------+ + + + | Date | Type | Department | Care Team | Description | +--------+---------+ + + + | 10/21/ | Office | [place] [facility] | Malaika Martines | Tremor | | 2018 | Visit | HOSPITAL NEUROLOGY | MD [address] | | | | | CLINIC [address] | [place] [address] | | | | | [address], | [place] [address] | | | | | [place] [address] | [phone] | | | | | [phone] | | | +--------+---------+ + + + [...] Instructions - Malaika Martines MD - 10/21/2017 134 PSTYou have the following tests/procedures ordered. At [facility] Radiology : Brain MRI EEG routine Blood work at [facility]: CMP, TSH, gabapentin level *Any questions, please call Dr. Martines's office at Patient advised of their right to have diagnostic testing, health care treatment, and/or se rvices at a facility other than [facility], [facility]. in this encounter Progress Notes Malaika Martines MD - 10/21/2017 6869 PSTFormatting of this note may be different from the original. Patient: Jennyfer Cochran Medical Record: [id number] Date of Services: 10/21/2017 Referring Doctor: Antwon [...] CEREBELLAR EXAMINATION: There is no dysmetria on lafais-oy-vsgz test. Miscellaneous: During this visit, the patient [...] | | | | | [place] [address] | | | | | | [phone] | | | | | | | [...] GLOMERULAR FILTRATION | >=60 mL/min/1.73m2 | | SALVADOREAN | RATE,ESTIMATED mL/min/1.11m2Uaai than | | | | 60 Chronic [...] | + + + | Blood | [facility] [address] [place], | | | [place] [address] | + + + TSH (10/21/2017 1442) + +-------+ + | Component | Value | Ref Range | + +-------+ + | TSH | 1.64 | 0.36 - 3.74 uIU/mL | + +-------+ + + + + | Specimen | Performing Laboratory | + + + | Blood | [facility] [address] [place], | | | [place] [address] | + + + in this encounter Visit Diagnoses + + | Diagnosis | + + | Tremor | + + | Abnormal involuntary movements | + +
--- OUTSIDE RECORDS SUMMARY | ~2017-12-30 | XMS | Encounter Summary ---
Demographics + + + | Address | [address] | | | [place] [address] | + + + | Home Phone | | + + + | Preferred Language | Unknown | + + + | Marital Status | Single | + + + | Pentecostal Affiliation | Unknown | + + + | Race | Unknown | + + + | Ethnic Group | Unknown | + + + Author + + + | Author | [facility] | | | and Earlana | + + + | Organization | [facility] | | | [...] Team Providers + +------+ + | Care Pens And Pencils Dipper Name | Role | Phone | + [...] Lab Results | | 2018 | | [facility] NEUROLOGY | | | | | | CLINIC [address] | | | | | | [address] [place], | | | | | | [place] [address] | | | | | | [phone] | | | +--------+ + + + [...] | | | | | [place], [place] [address] | | | | | | [phone] | | | | | | | | +--------+---------+ + + + as of this encounter Visit Diagnoses Not on filein this encounter"
--- OUTSIDE RECORDS SUMMARY | ~2017-12-30 | XMS | Encounter Summary ---
Demographics + + + | Address | [address] | | | [place] [address] | + + + | Home Phone | | + + + | Preferred Language | Unknown | + + + | Marital Status | Single | + + + | Temple Affiliation | Unknown | + + + | Race | Unknown | + + + | Ethnic Group | Unknown | + + + Author + + + | Author | [facility] | | | and Earlana | + + + | Organization | [facility] | | | [...] Team Providers + +------+ + | Care Freight Clerk Name | Role | Phone | + [...] | | Contrast | [place], | [address] | | | | | | [place] [address] | Phone: | | | | | | Phone: | [phone] | | | | | | [phone] | Fax: | | | | | | Fax: | [phone] | | | | | | [phone] | | + +--------+ + + + [...] | [address], | [place] [address] | | | | | [place] [address] | [phone] | | | | | [phone] | | | +--------+---------+ + + + [...] tests/procedures ordered. Brain MRI no contrast at [facility] Medication Instructions: Discontinue carbidopa/levodopa; decrease gabapentin to 900 mg 2 ti mes a day *Any questions, please call Dr. Martines's office at Patient advised of their right to have diagnostic testing, health care treatment, and/or se rvices at a facility other than [facility]. in this encounter Progress Notes Malaika Martines MD - 11/26/2017 1100 PDTFormatting of this note may be different from the original. Patient: Jennyfer Cochran Medical Record: [id number] Date of Services: 11/26/2017 Referring Doctor: Antwon [...] CEREBELLAR EXAMINATION: There is no dysmetria on ibeplt-go-xcwb test. Miscellaneous: There is no cogwheeling noted. [...] | | | | | [place] [address] | | | | | | [phone] | | | | | | | [...]
--- OUTSIDE RECORDS SUMMARY | ~2017-12-30 | XMS | Clinical Summary ---
Demographics + + + | Address | [address] | | | [place] [address] | + + + | Home Phone | | + + + | Preferred Language | Unknown | + + + | Marital Status | Single | + + + | Orthodoxy Affiliation | NON | + + + [...] Team Providers + +------+ + | Care Safe And Vault Mechanic Name | Role | Phone | + +------+ + PP | Unavailable | + +------+ + Source Comments JOAQUINA is fully live on both [facility] and [facility] InPatient.[facility] Allergies No Known Allergies Current Medications [...]
--- OUTSIDE RECORDS SUMMARY | ~2017-12-30 | XMS | Encounter Summary ---
Demographics + + + | Address | [address] | | | [place] [address] | + + + | Home Phone | | + + + | Preferred Language | Unknown | + + + | Marital Status | Single | + + + | Rastafari Affiliation | Unknown | + + + | Race | Unknown | + + + | Ethnic Group | Unknown | + + + Author + + + | Author | [facility] | | | and Earlana | + + + | Organization | [facility] | | | [...] Team Providers + +------+ + | Care Glove Cleaner Name | Role | Phone | + [...] | | | | | Procedures | [place], | [place], [place] | | | | | Evaluate and | [place] | [address] Phone: | | | | | Treat | [address] | [phone] | | | | | | Phone: | Fax: | | | | | | [phone] | [phone] | | | | | | Fax: | | | | | | | [phone] | | +--------+ + + + + [...] | [address], | [place] [address] | | | | | [place] [address] | [phone] | | | | | [phone] | | | +--------+---------+ + + + [...] PSTYou have the following tests/procedures ordered. At [facility] Radiology : Brain MRI EEG routine Blood work at [facility]: CMP, TSH, gabapentin level *Any questions, please call Dr. Martines's office at Patient advised of their right to have diagnostic testing, health care treatment, and/or se rvices at a facility other than [facility], [facility]. in this encounter Progress Notes Malaika Martines MD - 10/21/2017 8194 PSTFormatting of this note may be different from the original. Patient: Jennyfer Cochran Medical Record: [id number] Date of Services: 10/21/2017 Referring Doctor: Antwon [...] CEREBELLAR EXAMINATION: There is no dysmetria on hgkbbr-bl-wrne test. Miscellaneous: During this visit, the patient [...] | | | | | [place] [address] | | | | | | [phone] | | | | | | | [...] GLOMERULAR FILTRATION | >=60 mL/min/1.73m2 | | AFGHAN | RATE,ESTIMATED mL/min/1.32m4Wifa than | | | | 60 Chronic [...] | + + + | Blood | [facility] [address] [place], | | | [place] [address] | + + + TSH (10/21/2017 1442) + +-------+ + | Component | Value | Ref Range | + +-------+ + | TSH | 1.64 | 0.36 - 3.74 uIU/mL | + +-------+ + + + + | Specimen | Performing Laboratory | + + + | Blood | [facility] [address] [place], | | | [place] [address] | + + + in this encounter Visit Diagnoses + + | Diagnosis | + + | Tremor | + + | Abnormal involuntary movements | + +
[~2017-12-30 13:26] MED LIST changes: -TRAZODONE HCL50 MG NG; +TRAZODONE HCL50 MG PO
--- NOTE | 2017-12-30 20:52 | EKG ---
[facility] [address] [facility] [place] [address] Signed Normal sinus rhythm Normal ECG When compared with ECG of 31-JUL-2017 15:19, Nonspecific T wave abnormality now evident in Anterior leads Confirmed by ANUM BIRD MD ([id number]) on 12/30/2017 8:52:28 PM Electronically Signed By: ANUM BIRD MD 12/30/172051 PATIENT NAME: RORYRAFAELRODRICK ROSENBERG Electrocardiogram DATE OF : 53 PHYSICIAN: ANUM BIRD MD REPORT #: [id number] REPORT IS CONFIDENTIAL AND NOT TO BE RELEASED WITHOUT AUTHORIZATION
== END 2017-12-30 16:20 | disposition home or self-care (01) ==
LOC: ED 13:26
DX: E11.65 Type 2 diabetes mellitus with hyperglycemia (principal); F31.9 Bipolar disorder, unspecified; I10 Essential (primary) hypertension; E03.9 Hypothyroidism, unspecified; E78.00 Pure hypercholesterolemia, unspecified; J44.9 Chronic obstructive pulmonary disease, unspecified; Z91.048 Other nonmedicinal substance allergy status; Z79.899 Other long term (current) drug therapy; Z79.4 Long term (current) use of insulin; Z79.82 Long term (current) use of aspirin
CPT/HCPCS: 70450; 71045; 80053; 81001; 83605; 84484; 85025; 93005; 93010; 96374; 99284; J7030

== ENCOUNTER 2018-01-02 18:51 | Inpatient (IN) | payer OTHER ==
[~2018-01-02] VITALS: Ht 170.2 cm; Wt 72.7 kg
--- OUTSIDE RECORDS SUMMARY | ~2018-01-02 | XMS | Clinical Summary ---
Demographics + + + | Address | [address] | | | [address] | | | [place] [address] | + + + | Home Phone | | + + + | Preferred Language | Unknown | + + + | Marital Status | Single | + + + | Confucianist Affiliation | Unknown | + + + | Race | Unknown | + + + | Ethnic Group | Unknown | + + + Author + + + | Author | [facility] [facility] | + + + | Organization | [facility] | + + + | Address | Unknown | + + + | Phone | Unavailable | + + + Support + + + + + | Name | Relationship | Address | Phone | + + + + + | Julius Cochran Or | ECON | [address] | | | | | [place] [facility] [place] | | | | | [address] | | + + + + + Care Team Providers + +------+ + | Care Slitting Machine Operator Helper Name | Role | Phone | + +------+ + | [facility], [facility] | PP | Unavailable | | Community | | | + +------+ + Allergies Not on File Current Medications Not on file Active Problems Not on file Social History + +-------+ +--------+------+ | Tobacco Use | Types | Packs/Day | Years | Date | | | | | Used | | + +-------+ +--------+------+ | Never Assessed | | | | | + +-------+ +--------+------+ + + + | Sex Assigned at | Date Recorded | | | | + + + | Not on file | | + + + Plan of Treatment Not on file Results Not on filefrom Last 3 Months"
--- OUTSIDE RECORDS SUMMARY | ~2018-01-02 | XMS | Clinical Summary ---
Demographics + + + | Address | [address] | | | [place] [address] | + + + | Home Phone | | + + + | Preferred Language | Unknown | + + + | Marital Status | Single | + + + | Samaritan Affiliation | Unknown | + + + | Race | Unknown | + + + | Ethnic Group | Unknown | + + + Author + + + | Author | [facility] | | | and [place]ana | + + + | Organization | [facility] | | | [...] Team Providers + +------+ + | Care Hand Molder And Caster Name | Role | Phone | + [...] | | | | | [place] [address] | | | | | | [phone] | | | | | | | [...] care of this | | patient. Malaika Martines, 11/29/20179:48 Electronically signed | + + [facility] Referral (10/21/2017 1443) + + + + | Component | Value | Ref Range | + + + + | Result | Comment: See Media tab for scanned image. | | + + + + + + + | Specimen | Performing Laboratory | + + + | Blood | REFERENCE LAB [facility] [address] [address] | | | [place] [address] | + + + TSH (10/21/2017 1442) + +-------+ + | Component | Value | Ref Range | + +-------+ + | TSH | 1.64 | 0.36 - 3.74 uIU/mL | + +-------+ + + + + | Specimen | Performing Laboratory | + + + | Blood | [place] [facility] [address] [place], | | | [place] [address] | + + + Comprehensive Metabolic Panel (10/21/20171441) + + + + | Component | [...] GLOMERULAR FILTRATION | >=60 mL/min/1.73m2 | | KYRGYZ | RATE,ESTIMATED mL/min/1.54i9Scqy than | | | | 60 Chronic [...] | + + + | Blood | [facility] [address] [place], | | | [place] [address] | + + + from Last 3 [...] | MODA | xxxxxxxx | Medica | [phone] | | MEDICAID HMO | HEALTH [...] Self | [birth year] Home: | [address] | | | al/Fam | | 1955 | [phone] | [address] [place] | | | dexter | | | [address][birth year] | [address] | + +--------+ +--------+ + +
--- OUTSIDE RECORDS SUMMARY | ~2018-01-02 | XMS | Clinical Summary ---
Demographics + + + | Address | [address] | | | [address] | | | [place] [address] | + + + | Home Phone | | + + + | Preferred Language | Unknown | + + + | Marital Status | Single | + + + | Mormon Affiliation | Unknown | + + + | Race | Unknown | + + + | Ethnic Group | Unknown | + + + Author + + + | Author | [facility] [employer] [facility] | + + + | Organization | [facility] [employer] [facility] | + + + | Address | Unknown | + + + | Phone | Unavailable | + + + Support + + + + + | Name | Relationship | Address | Phone | + + + + + | Julius Cochran [place] | ECON | [address] | | | | | [place] [facility] [place] | | | | | [address] | | + + + + + Care Team Providers + +------+ + | Care Ruling Machine Set Up Operator Name | Role | Phone | + +------+ + | [facility], [facility] | PP | Unavailable | | Community [...]
--- OUTSIDE RECORDS SUMMARY | ~2018-01-02 | XMS | Encounter Summary ---
Demographics + + + | Address | [address] | | | [place] [address] | + + + | Home Phone | | + + + | Preferred Language | Unknown | + + + | Marital Status | Single | + + + | Jainism Affiliation | Unknown | + + + | Race | Unknown | + + + | Ethnic Group | Unknown | + + + Author + + + | Author | [facility] | | | and Earlana | + + + | Organization | [facility] | | | and [...] Team Providers + +------+ + | Care Coal Weigher Name | Role | Phone | + [...] | [address] [place], [place] | [place] [address] | | | | | [address] | [phone] | | | | | [phone] | | | +--------+ + + + [...] | | | | | [place] [address] | | | | | | [phone] | | | | | | | [...]
--- OUTSIDE RECORDS SUMMARY | ~2018-01-02 | XMS | Encounter Summary ---
Demographics + + + | Address | [address] | | | [place] [address] | + + + | Home Phone | | + + + | Preferred Language | Unknown | + + + | Marital Status | Single | + + + | Christianity Affiliation | Unknown | + + + | Race | Unknown | + + + | Ethnic Group | Unknown | + + + Author + + + | Author | [facility] | | | and [place] | + + + | Organization | [facility] | | [...] Team Providers + +------+ + | Care Lay Out Drafter Name | Role | Phone | + +------+ + | Antwon Salinas | PCP | | | MD | | | + +------+ + Reason for Visit +---------+ + | Reason | Comments | +---------+ + | Results | EEG | +---------+ + Encounter Details +--------+ + + + + | Date | Type | Department | Care Team | Description | +--------+ + + + + | 11/30/ | Telephone | [place] [facility] | Christen Castellano RN | Results (EEG) | | 2018 | | HOSPITAL [facility]OLOGY | | | | | | CLINIC [address] | | | | | | [address] [place], | | | | | | [place] [address] | | | | | | [phone] | | | +--------+ + + + [...] | | | | | [place] [address] | | | | | | [phone] | | | | | | | | +--------+---------+ + + + as of this encounter Visit Diagnoses Not on filein this encounter"
--- OUTSIDE RECORDS SUMMARY | ~2018-01-02 | XMS | Clinical Summary ---
Demographics + + + | Address | [address] | | | [address] | | | [place] [address] | + + + | Home Phone | | + + + | Preferred Language | Unknown | + + + | Marital Status | Single | + + + | Adventist Affiliation | Unknown | + + + | Race | Unknown | + + + | Ethnic Group | Unknown | + + + Author + + + | Author | [facility] | + + + | Organization | [facility] | + + + | Address | Unknown | + + + | Phone | Unavailable | + + + Support + + + + + | Name | Relationship | Address | Phone | + + + + + | Julius Cochran [place] | ECON | [address] | | | | | [place] [facility] [place] | | | | | [address] | | + + + + + Care Team Providers + +------+ + | Care Fuel Retrofitting Technician Name | Role | Phone | + +------+ + | [facility], [facility] | PP | Unavailable | | Community [...]
--- OUTSIDE RECORDS SUMMARY | ~2018-01-02 | XMS | Encounter Summary ---
Demographics + + + | Address | [address] | | | [place] [address] | + + + | Home Phone | | + + + | Preferred Language | Unknown | + + + | Marital Status | Single | + + + | Congregational Affiliation | Unknown | + + + | Race | Unknown | + + + | Ethnic Group | Unknown | + + + Author + + + | Author | [facility] | | | and Earl[place] | + + + | Organization | [facility] | | | [...] Team Providers + +------+ + | Care Medical Asst Name | Role | Phone | + +------+ + | Antwon Salinas | PCP | | | MD | | | + +------+ + Reason for Visit +---------+ + | Reason | Comments | +---------+ + | Tremors | | +---------+ + Evaluate & Treat (Routine) +--------+ + + + + + | Status | Reason | Specialty | Diagnoses / | Referred By | Referred To | | | | | Procedures | Contact | Contact | +--------+ + + + + + | Closed | Specialty | Neurology | Diagnoses | Rita, | Conrad, | | | Services | | Other | Antwon | Malaika Barlow, | | | Required | | specified | MD Grady | MD Hernadez | | | | | forms of | [address], | | | | | tremor | [address] | [place] | | | | | Procedures | [place], | [place], [place] | | | | | Evaluate and | [place] | [address] Phone: | | | | | Treat | [address] | [phone] | | | | | | Phone: | Fax: | | | | | | [phone] | [phone] | | | | | | Fax: | | | | | | | [phone] | | +--------+ + + + + + Encounter Details +--------+---------+ + + + | Date | Type | Department | Care Team | Description | +--------+---------+ + + + | 10/21/ | Office | [facility] [facility] | Malaika Martines | Tremor | | 2018 | Visit | HOSPITAL NEUROLOGY | MD Cain [address] | | | | | CLINIC [address] | [place] | | | | | [address] [place], | [place] [address] | | | | | [place] [address] | [phone] | | | | | [phone] | | | +--------+---------+ + + + Social History + + [...] + + + as of this encounter Last Filed Vital Signs + + + + | Vital Sign | Reading | Time Taken | + + + + | Blood Pressure | 145/93 | 10/21/2017 1317 PST | + + + + | Pulse | 72 | 10/21/20171316 PST | + + + + | Temperature | - | - | + + + + | Respiratory Rate | 18 | 10/21/20171316 PST | + + + + | Oxygen Saturation | 94% | 10/21/20171316 PST | + + + + | Inhaled Oxygen | - | - | | Concentration | | | + + + + | Weight | 78.2 kg (172 lb 6.4 | 10/21/20171316 PST | | | oz) | | + + + + | Height | 162.6 cm (5' 4") | 10/21/2017 1317 PST | + + + + | Body Mass Index | 29.59 | 10/21/2017 1317 PST | + + + + in this encounter Instructions Patient Instructions - Malaika Martines MD - 10/21/2017 1342 PSTYou have the following tests/procedures ordered. At [facility] Radiology : Brain MRI EEG routine Blood work at [facility]: CMP, TSH, gabapentin level *Any questions, please call Dr. Martines's office at Patient advised of their right to have diagnostic testing, health care treatment, and/or se rvices at a facility other than [facility], [facility]. in this encounter Progress Notes Malaika Martines MD - 10/21/2017 6945 PSTFormatting of this note may be different from the original. Patient: Jennyfer Cochran Medical Record: [id number] Date of Services: 10/21/2017 Referring Doctor: Antwon Salinas MD Chief Complaint Patient presents with Tremors HISTORY OF PRESENT ILLNESS: The patient is a 62-year-old female who is referred to me because of tremors. The referral apparently came from a nurse practitioner in a mental health facility where the patient goe s. The patient is somewhat a poor historian. She is me that she has had these tremors for roque e time. She claims that she feels restless and tends to clench her jaw and hands. These tr emors typically are brought on by stress and anxiety and she is able to stop them. She does not find them debilitating. During her visit with me, she kept repeating that they are str ess related and are not involuntarily. At some point, she was taken off Geodon to see if her tremors improved but they did not. S he is on Klonopin for anxiety and finds the medication useful for her tremors as well. She does have a diagnosis of restless leg syndrome and is currently on both Sinemet and Req uip which she takes on a when necessary basis at bedtime. REVIEW OF SYSTEMS: General: Positive for weight loss HEENT: Positive for vision changes and tinnitus Cardiovascular: Positive portions of breath on exertion Respiratory: No cough Gastrointestinal: No vomiting Musculoskeletal: Positive for joint pains and stiffness, back pain, and neck pain Skin: No rash Hematologic: No bruising Neurologic: Positive for memory loss and disorientation Psychiatric: Positive for anxiety Genitourinary: Positive for slow flow PAST MEDICAL HISTORY: Past Medical History: Diagnosis Date COPD (chronic obstructive pulmonary disease) (HCC) Diabetes mellitus (HCC) Hypertension Hypothyroidism Schizophrenia (HCC) PAST SURGICAL HISTORY: Past Surgical History: Procedure Laterality Date CHOLECYSTECTOMY MEDICATIONS: Current Outpatient Prescriptions Medication Sig Dispense Refill ADVAIR DISKUS 250-50 MCG/DOSE diskus inhaler 0 atenolol (TENORMIN) 25 mg tablet Take 25 mg by mouth Daily. ATROVENT HFA 17 MCG/ACT inhaler 0 carbidopa-levodopa (SINEMET) 10-100 mg per tablet Take by mouth Daily. 0 clonazePAM (KLONOPIN) 0.5 mg tablet Take 0.5 mg by mouth as needed. 0 DULoxetine (CYMBALTA) [address] capsule Take 60 mg by mouth Daily. folic acid 1 mg tablet Take 1 mg by mouth Daily. gabapentin (NEURONTIN) 600 MG tablet Take 1,200 mg by mouth 3 times daily. HYDROcodone-acetaminophen (NORCO) 7.5-325 mg per tablet take 1 or 2 tablets by mouth ev hailey 4 to 6 hours if needed 0 LANTUS 100 UNIT/ML injection (vial) levothyroxine (SYNTHROID) 175 MCG tablet Take 175 mcg by mouth Daily. lisinopril (PRINIVIL,ZESTRIL) 40 MG tablet Take 40 mg by mouth Daily. NOVOLOG 100 UNIT/ML injection piroxicam (FELDENE) 20 MG capsule Take 20 mg by mouth Daily. potassium chloride (KLOR-CON) 10 mEq CR tablet rOPINIRole (REQUIP) 1 mg tablet 0 simvastatin (ZOCOR) 40 mg tablet Take 40 mg by mouth Daily. traZODone (DESYREL) 50 mg tablet 0 triamterene-hydrochlorothiazide (MAXZIDE-25) 37.5-25 mg per tablet Take by mouth Daily . No current facility-administered medications for this visit. ALLERGIES: No Known Allergies Social History Social History Marital status: Single Spouse name: N/A Number of children: N/A Years of education: N/A Occupational History Not on file. Social History Main Topics Smoking status: Former Smoker Packs/day: 1.50 Types: Cigarettes Start date: 1989 Quit date: 2007 Smokeless tobacco: Never Used Alcohol use No Drug use: No Sexual activity: Not on file Other Topics Concern Not on file Social History Narrative No narrative on file Family History Problem Relation Age of Onset Heart disease Mother Dementia Father PHYSICAL EXAMINATION: BP (!) 145/93 | Pulse 72 | Resp 18 | Ht 1.626 m (5' 4") | Wt 78.2 kg (172 lb 6.4 oz) | SpO2 94% | BMI 29.59 kg/m Neck is supple. Lungs are clear. Heart sounds are within normal limits. Abdomen is soft and non-tender, There is no extremity cyanosis. NEUROLOGIC EXAMINATION: MENTAL STATUS: The patient is awake, alert, and oriented to time, place, and person. Spee ch is fluent. Memory appears mildly impaired. CRANIAL NERVES: Funduscopy revealed distinct disc margins. Pupils are 3-4 mm, equal and r eactive to light and accommodation. Extraocular muscle movements are intact. There are no vi sual field cuts. There is no nystagmus. There is no facial asymmetry. Facial sensation is intact. Palate elevates symmetrically. Strength in the trapezius and sternocleidomastoid m uscles is normal. Tongue is midline on protrusion. MOTOR EXAMINATION: Strength is 5/5 throughout. I did not note any cogwheeling. SENSORY EXAMINATION: Intact to light touch, pin prick. DEEP TENDON REFLEXES: 1+ and symmetric. PLANTAR RESPONSES: Downgoing bilaterally GAIT: Gait and station are normal. CEREBELLAR EXAMINATION: There is no dysmetria on phujiu-ol-rwwp test. Miscellaneous: During this visit, the patient appeared anxious at times and was somewhat sh aky. She shook her legs intermittently but was able to stop it when I asked her to. IMPRESSION: 1. Tremors, possibly anxiety related 2. Known restless legs syndrome, currently on Requip and Sinemet 3. Schizophrenia PLAN AND RECOMMENDATIONS: I agree with the patient that her tremors are likely anxiety related. She has no features of parkinsonism at the moment. She was able to control her tremors. Nevertheless, I am ordering a neurologic workup. These will include a brain MRI, EEG, and blood work for CMP, TSH and gabapentin level. We did call for her recent labs and was told that the last time she had blood drawn was in March of last year. I went over her medication list and recommend no changes. I will continue to follow her. She is to come back to the neurology clinic in 4 weeks. Thank you for the opportunity to participate in the care of this patient. Malaika Martines MD10/21/201714:17 Electronically signed This note was transcribed using voice recognition software. There may be speech recognitio n errors which escaped detection during review. in this encounter Plan of Treatment +--------+---------+ + + + | Date | Type | Specialty | Care Team | Description | +--------+---------+ + + + | 01/27/ | Office | Neurology | Malaika Martines | | | 2017 | Visit | | MD Cain [address], [place] | | | | | | [place] [address] | | | | | | [phone] | | | | | | | [...] Martines MD11/29/20179:48 Electronically signed | + + Comprehensive Metabolic Panel (10/21/2017 1442) [...] GLOMERULAR FILTRATION | >=60 mL/min/1.73m2 | | MONGOLIAN | RATE,ESTIMATED mL/min/1.89x3Mrzj than | | | | 60 Chronic [...] | + + + | Blood | [facility] [address] [place], | | | [place] [address] | + + + TSH (10/21/2017 1442) + +-------+ + | Component | Value | Ref Range | + +-------+ + | TSH | 1.64 | 0.36 - 3.74 uIU/mL | + +-------+ + + + + | Specimen | Performing Laboratory | + + + | Blood | [facility] [address] [place], | | | [place] [address] | + + + in this encounter Visit Diagnoses + + | Diagnosis | + + | Tremor | + + | Abnormal involuntary movements | + +
--- OUTSIDE RECORDS SUMMARY | ~2018-01-02 | XMS | Encounter Summary ---
Demographics + + + | Address | [address] | | | [place] [address] | + + + | Home Phone | | + + + | Preferred Language | Unknown | + + + | Marital Status | Single | + + + | Restorationism Affiliation | Unknown | + + + | Race | Unknown | + + + | Ethnic Group | Unknown | + + + Author + + + | Author | [facility] | | | and [place] | + + + | Organization | [facility] | | | [...] Team Providers + +------+ + | Care Steam Fitter Supervisor Name | Role | Phone | + [...] | [address] [place], | [place] [address] | | | | | [place] [address] | [phone] | | | | | [phone] | | | +--------+ + + + [...] | | | | | [place] [address] | | | | | | [phone] | | | | | | | | +--------+---------+ + + + as of this encounter Visit Diagnoses Not on filein this encounter"
--- OUTSIDE RECORDS SUMMARY | ~2018-01-02 | XMS | Clinical Summary ---
Demographics + + + | Address | [address] | | | [place] [address] | + + + | Home Phone | | + + + | Preferred Language | Unknown | + + + | Marital Status | Single | + + + | Adventist Affiliation | NON | + + + | Race | White | + + + | Ethnic Group | Not or | + + + Author + + + | Author | NON REVENUE LOCATIONS | + + + | Organization | NON REVENUE LOCATIONS | + + + | Address | Unknown | + + + | Phone | Unavailable | + + + Support + + +---------+ + | Name | Relationship | Address | Phone | + + +---------+ + | REKHA VALADEZ | ECON | Unknown | | + + +---------+ + Care Team Providers + +------+ + | Care Process Designer Name | Role | Phone | + +------+ + PP | Unavailable | + +------+ + Source Comments JOAQUINA is fully live on both [facility] Ambulatory and [facility] InPatient.[facility] Allergies No Known Allergies Current Medications + + + +---------+------+------+-------+ | Prescription | Sig. | Disp. | Refills | Star | End | Statu | | | | | | t | Date | s | | | | | | Date | | | + + + +---------+------+------+-------+ | venlafaxine XR 150 | Take 150 mg by mouth | | | | | Activ | | mg Oral | two times daily. | | | | | e | | capsule,extended | | | | | | | | release 24hr | | | | | | | + + + +---------+------+------+-------+ | insulin glargine | Inject 40 Units | | | | | Activ | | 100 unit/mL | under the skin | | | | | e | | Subcutaneous | (SUBC) once daily at | | | | | | | Solution | bedtime. | | | | | | + + + +---------+------+------+-------+ | | Take 1 Tab by mouth | | | | | Activ | | HYDROcodone-acetamin | every four hours as | | | | | e | | ophen 7.5-325 mg | needed. Not to | | | | | | | Oral tablet | exceed 10 tablets | | | | | | | | per any 24 hour | | | | | | | | period. (Not to | | | | | | | | exceed 3250 mg of | | | | | | | | acetaminophen from | | | | | | | | all products per 24 | | | | | | | | hour period.) | | | | | | + + + +---------+------+------+-------+ | insulin aspart | Inject under the | | | | | Activ | | (NOVOLOG) 100 | skin (SUBC) three | | | | | e | | unit/mL Subcutaneous | times daily before | | | | | | | Solution | meals. | | | | | | + + + +---------+------+------+-------+ | piroxicam 20 mg | Take 20 mg by mouth | | | | | Activ | | Oral capsule | once daily. | | | | | e | + + + +---------+------+------+-------+ | simvastatin 80 mg | Take 80 mg by mouth | | | | | Activ | | Oral | once daily in the | | | | | e | | tabletIndications: | evening. | | | | | | | hypercholesterolemia | Indications: | | | | | | | | HYPERCHOLESTEROLEMIA | | | | | | + + + +---------+------+------+-------+ | clonazePAM 2 mg | Take 2 mg by mouth | | | | | Activ | | Oral tablet | once daily at | | | | | e | | | bedtime as needed. | | | | | | + + + +---------+------+------+-------+ | amLODIPine 10 mg | Take 10 mg by mouth | | | | | Activ | | Oral tablet | once daily. | | | | | e | + + + +---------+------+------+-------+ | atenolol 100 mg | Take 100 mg by mouth | | | | | Activ | | Oral | once daily. | | | | | e | | tabletIndications: | Indications: | | | | | | | hypertension | HYPERTENSION | | | | | | + + + +---------+------+------+-------+ | folic acid 1 mg | Take 1 mg by mouth | | | | | Activ | | Oral tablet | once daily. | | | | | e | + + + +---------+------+------+-------+ | levothyroxine 175 | Take 175 mcg by | | | | | Activ | | mcg Oral | mouth once daily. | | | | | e | | tabletIndications: | Indications: | | | | | | | hypothyroidism | HYPOTHYROIDISM | | | | | | + + + +---------+------+------+-------+ | lisinopril 40 mg | Take 40 mg by mouth | | | | | Activ | | Oral tablet | once daily. | | | | | e | + + + +---------+------+------+-------+ | potassium chloride | Take 10 mEq by mouth | | | | | Activ | | SR 10 mEq Oral | once daily. | | | | | e | | tablet,ER | | | | | | | | particles/crystals | | | | | | | + + + +---------+------+------+-------+ | | Take 1 Cap by mouth | | | | | Activ | | triamterene-hydrochl | once daily. | | | | | e | | orothiazide 37.5-25 | Indications: | | | | | | | mg Oral | HYPERTENSION | | | | | | | capsuleIndications: | | | | | | | | hypertension | | | | | | | + + + +---------+------+------+-------+ | buPROPion XL 300 | Take 300 mg by mouth | | | | | Activ | | mg Oral tablet | once daily in the | | | | | e | | extended release 24 | morning. | | | | | | | hr | | | | | | | + + + +---------+------+------+-------+ | gabapentin 300 mg | Take 600 mg by mouth | | | | | Activ | | Oral capsule | three times daily. | | | | | e | + + + +---------+------+------+-------+ | ziprasidone 80 mg | Take 80 mg by mouth | | | | | Activ | | Oral capsule | two times daily with | | | | | e | | | meals. | | | | | | + + + +---------+------+------+-------+ | Desvenlafaxine | Take 100 mg by mouth | | | | | Activ | | (PRISTIQ) 100 mg | once daily. | | | | | e | | Oral tablet extended | | | | | | | | release 24 hr | | | | | | | + + + +---------+------+------+-------+ | oxyCODONE, | Take 1 Tab by mouth | 30 Tab | 0 | 06/1 | | Activ | | immediate release, 5 | every six hours as | | | 3/20 | | e | | mg Oral tablet | needed for moderate | | | 13 | | | | | pain. | | | | | | + + + +---------+------+------+-------+ Active Problems Not on file Social History + +-------+ +--------+------+ | Tobacco Use | Types | Packs/Day | Years | Date | | | | | Used | | + +-------+ +--------+------+ | Former Smoker | | | | | + +-------+ +--------+------+ + + +---------+ + | Alcohol Use [...] + + + | Blood Pressure | 157/91 | 03/10/2013 12:41 PM PDT | + + + + | Pulse | 64 | 03/10/2013 12:09 PM PDT | + + + + | Temperature | 36.5 C (97.7 F) | 03/10/2013 11:42 AM PDT | + + + + | Respiratory Rate | 12 | 03/10/2013 12:09 PM PDT | + + + + | Oxygen Saturation | 100% | 03/10/2013 12:41 PM PDT | + + + + | Inhaled Oxygen | - | - | | Concentration | | | + + + + | Weight | 86.2 kg (190 lb) | 02/23/2013 9:54 AM PDT | + + + + | Height | 170.2 cm (5' 7") | 02/23/2013 9:54 AM PDT | + + + + | Body Mass Index | 29.76 | 02/23/2013 9:54 AM PDT | + + + + Plan of Treatment + + + + + | Health Maintenance | Due Date | Last Done | Comments | + + + + + | INFLUENZA VACCINE | | | | | (FLU SHOT) | 8 | | | + + + + + Results Not on filefrom Last 3 Months
--- OUTSIDE RECORDS SUMMARY | ~2018-01-02 | XMS | Encounter Summary ---
Demographics + + + | Address | [address] | | | [place] [address] | + + + | Home Phone [...] Author + + + | Author | [facility] | | | and Earlana | + + + | Organization | [facility] | | | [...] Team Providers + +------+ + | Care Multiple Spindle Router Operator Name | Role | Phone | [...] | [address], | [place] [address] | | | | | [place] [address] | [phone] | | | | | [phone] | | | +--------+ + + + [...] | | | | | [place] [address] | | | | | | [phone] | | | | | | | | +--------+---------+ + + + as of this encounter Visit Diagnoses Not on filein this encounter"
--- OUTSIDE RECORDS SUMMARY | ~2018-01-02 | XMS | Clinical Summary ---
Demographics + + + | Address | [address] | | | [place] [address] | + + + | Home Phone | | + + + | Preferred Language | Unknown | + + + | Marital Status | Single | + + + | Protestant Affiliation | NON | + + + [...] Team Providers + +------+ + | Care Blow Mold Technician Name | Role | Phone | + +------+ + PP | Unavailable | + +------+ + Source Comments JOAQUINA is fully live on both [facility] Ambulatory and [facility] InPatient.[facility] Allergies No Known Allergies Current Medications + [...]
--- OUTSIDE RECORDS SUMMARY | ~2018-01-02 | XMS | Encounter Summary ---
Demographics + + + | Address | [address] | | | [place] [address] | + + + | Home Phone | | + + + | Preferred Language | Unknown | + + + | Marital Status | Single | + + + | Nondenominational Affiliation | Unknown | + + + | Race | Unknown | + + + | Ethnic Group | Unknown | + + + Author + + + | Author | [facility] | | | and Earlana | + + + | Organization | [facility] | | [...] Team Providers + +------+ + | Care Assistant Chief Nursing Officer Name | Role | Phone | + [...] Lab Results | | 2018 | | [facility] | | | | | | CLINIC [address] | | | | | | [address] [place], | | | | | | [place] [address] | | | | | | [phone] | | | +--------+ + + + [...] | | | | | [place], [place] [address] | | | | | | [phone] | | | | | | | | +--------+---------+ + + + as of this encounter Visit Diagnoses Not on filein this encounter"
--- OUTSIDE RECORDS SUMMARY | ~2018-01-02 | XMS | Encounter Summary ---
Demographics + + + | Address | [address] | | | [place] [address] | + + + | Home Phone [...] + + + | Author | [facility] | | | and Earlana | + + + | Organization | [facility] | | | [...] Team Providers + +------+ + | Care Veterans Service Representative Name | Role | Phone | + [...] | [address], [place] | [place] [address] | | | | | [address] | [phone] | | | | | [phone] | | | +--------+ + + + [...] | | | | | [place] [address] | | | | | | [phone] | | | | | | | [...]
--- OUTSIDE RECORDS SUMMARY | ~2018-01-02 | XMS | Clinical Summary ---
Demographics + + + | Address | [address] | | | [place] [address] | + + + | Home Phone | | + + + | Preferred Language | Unknown | + + + | Marital Status | Single | + + + | Hindu Affiliation | NON | + + + [...] Team Providers + +------+ + | Care Sheet Metal Engineer Name | Role | Phone | + +------+ + PP | Unavailable | + +------+ + Source Comments JOAQUINA is fully live on both [facility] Ambulatory and [facility] InPatient.[facility] Allergies No Known Allergies Current [...]
--- OUTSIDE RECORDS SUMMARY | ~2018-01-02 | XMS | Encounter Summary ---
Demographics + + + | Address | [address] | | | [place] [address] | + + + | Home Phone | | + + + | Preferred Language | Unknown | + + + | Marital Status | Single | + + + | Worship Affiliation | Unknown | + + + | Race | Unknown | + + + | Ethnic Group | Unknown | + + + Author + + + | Author | [facility] | | | and Earlana | + + + | Organization | [facility] | | | and [...] Team Providers + +------+ + | Care Four Horse Hitch Driver Name | Role | Phone | + [...] Lab Results | | 2018 | | [facility] | | | | | | CLINIC [address] | | | | | | [address] [place], | | | | | | [place] [address] | | | | | | [phone] | | | +--------+ + + + [...] | | | | | [place], [place] [address] | | | | | | [phone] | | | | | | | | +--------+---------+ + + + as of this encounter Visit Diagnoses Not on filein this encounter"
--- OUTSIDE RECORDS SUMMARY | ~2018-01-02 | XMS | Encounter Summary ---
Demographics + + + | Address | [address] | | | [place] [address] | + + + | Home Phone | | + + + | Preferred Language | Unknown | + + + | Marital Status | Single | + + + | Yazidi Affiliation | Unknown | + + + | Race | Unknown | + + + | Ethnic Group | Unknown | + + + Author + + + | Author | [facility] | | | and Earlana | + + + | Organization | [facility] | | | [...] Team Providers + +------+ + | Care Room Service Waiter Name | Role | Phone | + [...] | | | | | tremor | [address] | [place] | | | | | Procedures | [place], | [place], [place] | | | | | Evaluate and | [place] | [address] Phone: | | | | | Treat | [address] | [phone] | | | | | | Phone: | Fax: | | | | | | [phone] | [phone] | | | | | | Fax: | | | | | | | [phone] | | +--------+ + + + + [...] | [address], | [place] [address] | | | | | [place] [address] | [phone] | | | | | [phone] | | | +--------+---------+ + + + [...] Instructions - Malaika Martines MD - 10/21/2017 1340 PSTYou have the following tests/procedures ordered. At [facility] Radiology : Brain MRI EEG routine Blood work at [facility]: CMP, TSH, gabapentin level *Any questions, please call Dr. Martines's office at Patient advised of their right to have diagnostic testing, health care treatment, and/or se rvices at a facility other than [facility], [facility]. in this encounter Progress Notes Malaika Martines MD - 10/21/2017 0766 PSTFormatting of this note may be different from the original. Patient: Jennyfer Cochran Medical Record: [id number] Date of Services: 10/21/2017 Referring Doctor: Antwon [...] CEREBELLAR EXAMINATION: There is no dysmetria on jateih-bl-dxit test. Miscellaneous: During this visit, the patient [...] | | | | | [place] [address] | | | | | | [phone] | | | | | | | [...] GLOMERULAR FILTRATION | >=60 mL/min/1.73m2 | | KOSOVAN | RATE,ESTIMATED mL/min/1.74m3Fxqg than | | | | 60 Chronic [...] | + + + | Blood | [facility] [address] [place], | | | [place] [address] | + + + TSH (10/21/2017 1442) + +-------+ + | Component | Value | Ref Range | + +-------+ + | TSH | 1.64 | 0.36 - 3.74 uIU/mL | + +-------+ + + + + | Specimen | Performing Laboratory | + + + | Blood | [facility] [address] [place], | | | [place] [address] | + + + in this encounter Visit Diagnoses + + | Diagnosis | + + | Tremor | + + | Abnormal involuntary movements | + +
--- OUTSIDE RECORDS SUMMARY | ~2018-01-02 | XMS | Encounter Summary ---
Demographics + + + | Address | [address] | | | [place] [address] | + + + | Home Phone | | + + + | Preferred Language | Unknown | + + + | Marital Status | Single | + + + | Holiness Affiliation | Unknown | + + + | Race | Unknown | + + + | Ethnic Group | Unknown | + + + Author + + + | Author | [facility] | | | and Earlana | + + + | Organization | [facility] | | [...] Team Providers + +------+ + | Care Branch Customer Service Representative Name | Role | Phone [...] | | Contrast | [place], | [address] | | | | | | [place] [address] | Phone: | | | | | | Phone: | [phone] | | | | | | [phone] | Fax: | | | | | | Fax: | [phone] | | | | | | [phone] | | + +--------+ + + + [...] | [address], | [place] [address] | | | | | [place] [address] | [phone] | | | | | [phone] | | | +--------+---------+ + + + [...] tests/procedures ordered. Brain MRI no contrast at [facility] Medication Instructions: Discontinue carbidopa/levodopa; decrease gabapentin to 900 mg 2 ti mes a day *Any questions, please call Dr. Martines's office at Patient advised of their right to have diagnostic testing, health care treatment, and/or se rvices at a facility other than [facility]. in this encounter Progress Notes Malaika Martines MD - 11/26/2017 1100 PDTFormatting of this note may be different from the original. Patient: Jennyfer Cochran Medical Record: [id number] Date of Services: 11/26/2017 Referring Doctor: Antwon [...] CEREBELLAR EXAMINATION: There is no dysmetria on besflg-fl-retp test. Miscellaneous: There is no cogwheeling noted. [...] | | | | | [place] [address] | | | | | | [phone] | | | | | | | [...]
--- OUTSIDE RECORDS SUMMARY | ~2018-01-02 | XMS | Clinical Summary ---
Demographics + + + | Address | [address] | | | [place] [address] | + + + | Home Phone | | + + + | Preferred Language | Unknown | + + + | Marital Status | Single | + + + | Buddhism Affiliation | NON | + + + [...] Team Providers + +------+ + | Care Delinquent Tax Collector Name | Role | Phone | + +------+ + PP | Unavailable | + +------+ + Source Comments JOAQUINA is fully live on both [facility] Ambulatory and [facility] InPatient.[facility] Allergies No Known Allergies Current Medications + [...]
--- OUTSIDE RECORDS SUMMARY | ~2018-01-02 | XMS | Encounter Summary ---
Demographics + + + | Address | [address] | | | [place] [address] | + + + | Home Phone | | + + + | Preferred Language | Unknown | + + + | Marital Status | Single | + + + | Episcopalian Affiliation | Unknown | + + + | Race | Unknown | + + + | Ethnic Group | Unknown | + + + Author + + + | Author | [facility] | | | and Earlana | + + + | Organization | [facility] | | [...] Team Providers + +------+ + | Care Technical Consultant Name | Role | Phone | + [...] | | Contrast | [place], | [address] | | | | | | [place] [address] | Phone: | | | | | | Phone: | [phone] | | | | | | [phone] | Fax: | | | | | | Fax: | [phone] | | | | | | [phone] | | + +--------+ + + + [...] | [address] [place], | [place] [address] | | | | | [place] [address] | [phone] | | | | | [phone] | | | +--------+---------+ + + + [...] tests/procedures ordered. Brain MRI no contrast at [facility] Medication Instructions: Discontinue carbidopa/levodopa; decrease gabapentin to 900 mg 2 ti mes a day *Any questions, please call Dr. Martines's office at Patient advised of their right to have diagnostic testing, health care treatment, and/or se rvices at a facility other than [facility]. in this encounter Progress Notes Malaika Martines MD - 11/26/2017 1100 PDTFormatting of this note may be different from the original. Patient: Jennyfer Cochran Medical Record: [id number] Date of Services: 11/26/2017 Referring Doctor: Antwon [...] CEREBELLAR EXAMINATION: There is no dysmetria on pelvuw-pi-xjel test. Miscellaneous: There is no cogwheeling noted. [...] | 2017 | Visit | | [facility] [address] | | [address], [place] | | | | | | [place] [address] | | | | | | [phone] | | | | | | | [...]
--- OUTSIDE RECORDS SUMMARY | ~2018-01-02 | XMS | Encounter Summary ---
Demographics + + + | Address | [address] | | | [place] [address] | + + + | Home Phone | | + + + | Preferred Language | Unknown | + + + | Marital Status | Single | + + + | Pentecostalism Affiliation | Unknown | + + + | Race | Unknown | + + + | Ethnic Group | Unknown | + + + Author + + + | Author | [facility] | | | and Earlana | + + + | Organization | [facility] [...] Team Providers + +------+ + | Care Rehab Department Manager Name | Role | Phone | [...] | [address], | [place] [address] | | | | | [place] [address] | [phone] | | | | | [phone] | | | +--------+ + + + [...] | | | | | [place] [address] | | | | | | [phone] | | | | | | | | +--------+---------+ + + + as of this encounter Visit Diagnoses Not on filein this encounter"
--- OUTSIDE RECORDS SUMMARY | ~2018-01-02 | XMS | Clinical Summary ---
Demographics + + + | Address | [address] | | | [place] [address] | + + + | Home Phone | | + + + | Preferred Language | Unknown | + + + | Marital Status | Single | + + + | Jew Affiliation | Unknown | + + + | Race | Unknown | + + + | Ethnic Group | Unknown | + + + Author + + + | Author | [facility] | | | and Earlana | + + + | Organization | [facility] | | | [...] Team Providers + +------+ + | Care Cylinder Grinder Name | Role | Phone | + [...] | | | | | [place] [address] | | | | | | [phone] | | | | | | | [...] Martines, 11/29/20179:48 Electronically signed | + + [facility] Referral (10/21/2017 1443) + + + + | Component | Value | Ref Range | + + + + | Result | Comment: See Media tab for scanned image. | | + + + + + + + | Specimen | Performing Laboratory | + + + | Blood | REFERENCE [facility] [address] | | | [place] [address] | + + + TSH (10/21/2017 1442) + +-------+ + | Component | Value | Ref Range | + +-------+ + | TSH | 1.64 | 0.36 - 3.74 uIU/mL | + +-------+ + + + + | Specimen | Performing Laboratory | + + + | Blood | [place] [facility] [address] [place], | | | [place] [address] | + + + Comprehensive Metabolic Panel [...] GLOMERULAR FILTRATION | >=60 mL/min/1.73m2 | | EMIRATI | RATE,ESTIMATED mL/min/1.79f9Gpvn than | | | | 60 Chronic [...] + + + | Blood | [facility] [address] [place], | | | [place] [address] | + + + from Last 3 [...] | MODA | [id number] | Medica | [phone] | | MEDICAID HMO | HEALTH [...] Self | [birth year] Home: | [address] | | | al/Fam | | 1955 | [phone] | [address] [place] | | | [place]ter | | | [address][birth year] | [address] | + +--------+ +--------+ + +
--- OUTSIDE RECORDS SUMMARY | ~2018-01-02 | XMS | Encounter Summary ---
Demographics + + + | Address | [address] | | | [place] [address] | + + + | Home Phone | | + + + | Preferred Language | Unknown | + + + | Marital Status | Single | + + + | Protestant Affiliation | Unknown | + + + | Race | Unknown | + + + | Ethnic Group | Unknown | + + + Author + + + | Author | [facility] | | | and Earlana | + + + | Organization | [facility] | | | [...] Team Providers + +------+ + | Care Copying Machine Repairer Name | Role | Phone | + [...] Lab Results | | 2018 | | [facility] | | | | | | CLINIC [address] | | | | | | [address] [place], | | | | | | [place] [address] | | | | | | [phone] | | | +--------+ + + + [...] | | | | | [place], [place] [address] | | | | | | [phone] | | | | | | | | +--------+---------+ + + + as of this encounter Visit Diagnoses Not on filein this encounter"
--- OUTSIDE RECORDS SUMMARY | ~2018-01-02 | XMS | Encounter Summary ---
Demographics + + + | Address | [address] | | | [place] [address] | + + + | Home Phone | | + + + | Preferred Language | Unknown | + + + | Marital Status | Single | + + + | Samaritan Affiliation | Unknown | + + + | Race | Unknown | + + + | Ethnic Group | Unknown | + + + Author + + + | Author | [facility] | | | and Earlana | + + + | Organization | [facility] | | | and [...] Team Providers + +------+ + | Care Sales Account Executive Name | Role | Phone | + [...] | [address], [place] | [place] [address] | | | | | [address] | [phone] | | | | | [phone] | | | +--------+ + + + [...] | | | | | [place] [address] | | | | | | [phone] | | | | | | | [...]
--- OUTSIDE RECORDS SUMMARY | ~2018-01-02 | XMS | Encounter Summary ---
Demographics + + + | Address | [address] | | | [place] [address] | + + + | Home Phone | | + + + | Preferred Language | Unknown | + + + | Marital Status | Single | + + + | Holiness Affiliation | Unknown | + + + | Race | Unknown | + + + | Ethnic Group | Unknown | + + + Author + + + | Author | [facility] | | | and Earlana | + + + | Organization | [facility] | | | [...] Providers + +------+ + | Care Manager Sharepoint Name | Role | Phone | + [...] | | | | | | [place] [address] | | | | | | [phone] | | | +--------+ + + + [...] | | | | | [place] [address] | | | | | | [phone] | | | | | | | | +--------+---------+ + + + as of this encounter Visit Diagnoses Not on filein this encounter"
--- OUTSIDE RECORDS SUMMARY | ~2018-01-02 | XMS | Encounter Summary ---
Demographics + + + | Address | [address] | | | [place] [address] | + + + | Home Phone | | + + + | Preferred Language | Unknown | + + + | Marital Status | Single | + + + | Pentecostalism Affiliation | Unknown | + + + | Race | Unknown | + + + | Ethnic Group | Unknown | + + + Author + + + | Author | [facility] [place] [facility] | | | and Earlana | + + + | Organization | [facility] | | [...] Team Providers + +------+ + | Care Drug Abuse Technician Name | Role | Phone | [...] | | | | | Procedures | [place], | [place], [place] | | | | | Evaluate and | [place] | [address] Phone: | | | | | Treat | [address] | [phone] | | | | | | Phone: | Fax: | | | | | | [phone] | [phone] | | | | | | Fax: | | | | | | | [phone] | | +--------+ + + + + [...] | [address], | [place] [address] | | | | | [place] [address] | [phone] | | | | | [phone] | | | +--------+---------+ + + + [...] Instructions - Malaika Martines MD - 10/21/2017 1344 PSTYou have the following tests/procedures ordered. At [facility] Radiology : Brain MRI EEG routine Blood work at [facility]: CMP, TSH, gabapentin level *Any questions, please call Dr. Martines's office at Patient advised of their right to have diagnostic testing, health care treatment, and/or se rvices at a facility other than [facility], [facility]. in this encounter Progress Notes Malaika Martines MD - 10/21/2017 5114 PSTFormatting of this note may be different from the original. Patient: Jennyfer Cochran Medical Record: [id number] Date of Services: 10/21/2017 Referring Doctor: Antwon [...] CEREBELLAR EXAMINATION: There is no dysmetria on tedhau-io-ttsn test. Miscellaneous: During this visit, the patient [...] | | | | | [place] [address] | | | | | | [phone] | | | | | | | [...] GLOMERULAR FILTRATION | >=60 mL/min/1.73m2 | | ANDORRAN | RATE,ESTIMATED mL/min/1.38a2Bxxg than | | | | 60 Chronic [...] | + + + | Blood | [facility] [address] [place], | | | [place] [address] | + + + TSH (10/21/2017 1442) + +-------+ + | Component | Value | Ref Range | + +-------+ + | TSH | 1.64 | 0.36 - 3.74 uIU/mL | + +-------+ + + + + | Specimen | Performing Laboratory | + + + | Blood | [facility] [address] [place], | | | [place] [address] | + + + in this encounter Visit Diagnoses + + | Diagnosis | + + | Tremor | + + | Abnormal involuntary movements | + +
--- OUTSIDE RECORDS SUMMARY | ~2018-01-02 | XMS | Clinical Summary ---
Demographics + + + | Address | [address] | | | [address] | | | [place] [address] | + + + | Home Phone | | + + + | Preferred Language | Unknown | + + + | Marital Status | Single | + + + | Adventism Affiliation | Unknown | + + + | Race | Unknown | + + + | Ethnic Group | Unknown | + + + Author + + + | Author | [facility] | + + + | Organization | [facility] | + + + | Address | Unknown | + + + | Phone | Unavailable | + + + Support + + + + + | Name | Relationship | Address | Phone | + + + + + | Julius Cochran [place] | ECON | [address] | | | | | [place] [facility] [place] | | | | | [address] | | + + + + + Care Team Providers + +------+ + | Care Green Tire Inspector Name | Role | Phone | + +------+ + | [facility], [facility] | PP | Unavailable | [...]
--- OUTSIDE RECORDS SUMMARY | ~2018-01-02 | XMS | Clinical Summary ---
Demographics + + + | Address | [address] | | | [place] [address] | + + + | Home Phone | | + + + | Preferred Language | Unknown | + + + | Marital Status | Single | + + + | Religion Affiliation | Unknown | + + + | Race | Unknown | + + + | Ethnic Group | Unknown | + + + Author + + + | Author | [facility] [place] [facility] | | | and [place] | + + + | Organization | [facility] [...] Team Providers + +------+ + | Care Mosaic Technician Name | Role | Phone | [...] + | 10/27/ | Telephone | | Malakia Martines | Lab Results | | 2017 [...] | | | | | [place] [address] | | | | | | [phone] | | | | | | | [...] Martines, 11/29/20179:48 Electronically signed | + + [facility] Lab Referral (10/21/2017 1443) + + + + | Component | Value | Ref Range | + + + + | Result | Comment: See Media tab for scanned image. | | + + + + + + + | Specimen | Performing Laboratory | + + + | Blood | REFERENCE LAB [facility] [address] | | | [place] [address] | + + + TSH (10/21/2017 1442) + +-------+ + | Component | Value | Ref Range | + +-------+ + | TSH | 1.64 | 0.36 - 3.74 uIU/mL | + +-------+ + + + + | Specimen | Performing Laboratory | + + + | Blood | [place] [facility] [address] [place], | | | [place] [address] | + + + Comprehensive Metabolic Panel [...] GLOMERULAR FILTRATION | >=60 mL/min/1.73m2 | | PALESTINIAN | RATE,ESTIMATED mL/min/1.69q9Ybzw than | | | | 60 Chronic [...] | + + + | Blood | [facility] [address] [place], | | | [place] [address] | + + + from Last 3 [...] | MODA | xxxxxxxx | Medica | [phone] | | | MEDICAID HMO | HEALTH [...] Self | [birth year] | Home: | [address] | | | al/Fam | | 1955 | [phone] | [address] [place] | | | [place]ter | | | [birth year] | [phone] | + +--------+ +--------+ + +
--- OUTSIDE RECORDS SUMMARY | ~2018-01-02 | XMS | Encounter Summary ---
Demographics + + + | Address | [address] | | | [place] [address] | + + + | Home Phone | | + + + | Preferred Language | Unknown | + + + | Marital Status | Single | + + + | Episcopalian Affiliation | Unknown | + + + | Race | Unknown | + + + | Ethnic Group | Unknown | + + + Author + + + | Author | [facility] [place] [facility] | | | and Earlana | + + + | Organization | [facility] [...] Team Providers + +------+ + | Care Per Diem Nurse Name | Role | Phone | + [...] | [address], | [place] [address] | | | | | [place] [address] | [phone] | | | | | [phone] | | | +--------+ + + + [...] | | | | | [place] [address] | | | | | | [phone] | | | | | | | | +--------+---------+ + + + as of this encounter Visit Diagnoses Not on filein this encounter"
--- OUTSIDE RECORDS SUMMARY | ~2018-01-02 | XMS | Encounter Summary ---
Demographics + + + | Address | [address] | | | [place] [address] | + + + | Home Phone | | + + + | Preferred Language | Unknown | + + + | Marital Status | Single | + + + | Judaism Affiliation | Unknown | + + + | Race | Unknown | + + + | Ethnic Group | Unknown | + + + Author + + + | Author | [facility] [place] [facility] | | | and Earlana | + + + | Organization | [facility] [place] [facility] | | [...] Team Providers + +------+ + | Care Hot Top Liner Name | Role | Phone | + [...] | [address], [place] | [place] [address] | | | | | [address] | [phone] | | | | | [phone] | | | +--------+ + + + [...] | | | | | [place] [address] | | | | | | [phone] | | | | | | | [...]
--- OUTSIDE RECORDS SUMMARY | ~2018-01-02 | XMS | Encounter Summary ---
Demographics + + + | Address | [address] | | | [place] [address] | + + + | Home Phone | | + + + | Preferred Language | Unknown | + + + | Marital Status | Single | + + + | Jain Affiliation | Unknown | + + + | Race | Unknown | + + + | Ethnic Group | Unknown | + + + Author + + + | Author | [facility] [place] | | | and [place] | + + + | Organization | [facility] [place] | | | and [...] Team Providers + +------+ + | Care Quick Technician Name | Role | Phone | [...] | | Contrast | [place], | [address] | | | | | | [place] [address] | Phone: | | | | | | Phone: | [phone] | | | | | | [phone] | Fax: | | | | | | Fax: | [phone] | | | | | | [phone] | | + +--------+ + + + [...] | [address], | [place] [address] | | | | | [place] [address] | [phone] | | | | | [phone] | | | +--------+---------+ + + + [...] tests/procedures ordered. Brain MRI no contrast at [facility] Medication Instructions: Discontinue carbidopa/levodopa; decrease gabapentin to 900 mg 2 ti mes a day *Any questions, please call Dr. Martines's office at Patient advised of their right to have diagnostic testing, health care treatment, and/or se rvices at a facility other than [facility]. in this encounter Progress Notes Malaika Martines MD - 11/26/2017 1100 PDTFormatting of this note may be different from the original. Patient: Jennyfer Cochran Medical Record: [id number] Date of Services: 11/26/2017 Referring Doctor: Antwon [...] CEREBELLAR EXAMINATION: There is no dysmetria on titkln-ka-anyp test. Miscellaneous: There is no cogwheeling noted. [...] | | | | | [place] [address] | | | | | | [phone] | | | | | | | [...]
--- OUTSIDE RECORDS SUMMARY | ~2018-01-02 | XMS | Encounter Summary ---
Demographics + + + | Address | [address] | | | [place] [address] | + + + | Home Phone [...] + + + | Author | [facility] [place] [facility] | | | and Earl[place] | + + + | Organization | [facility] [place] [facility] | | | [...] Team Providers + +------+ + | Care Counselor Aide Name | Role | Phone | [...] | | | | | | [place] [address] | | | | | | [phone] | | | +--------+ + + + [...] | | | | | [place] [address] | | | | | | [phone] | | | | | | | | +--------+---------+ + + + as of this encounter Visit Diagnoses Not on filein this encounter"
--- OUTSIDE RECORDS SUMMARY | ~2018-01-02 | XMS | Encounter Summary ---
Demographics + + + | Address | [address] | | | [place] [address] | + + + | Home Phone | | + + + | Preferred Language | Unknown | + + + | Marital Status | Single | + + + | Christian Affiliation | Unknown | + + + | Race | Unknown | + + + | Ethnic Group | Unknown | + + + Author + + + | Author | [facility] [place] | | | and Earl[place] | + + + | Organization | [facility] [place] [facility] [...] Providers + +------+ + | Care Manager Economic Name | Role | Phone | + [...] | | Contrast | [place], | [address] | | | | | | [place] [address] | Phone: | | | | | | Phone: | [phone] | | | | | | [phone] | Fax: | | | | | | Fax: | [phone] | | | | | | [phone] | | + +--------+ + + + [...] | [address], | [place] [address] | | | | | [place] [address] | [phone] | | | | | [phone] | | | +--------+---------+ + + + [...] tests/procedures ordered. Brain MRI no contrast at [facility] Medication Instructions: Discontinue carbidopa/levodopa; decrease gabapentin to 900 mg 2 ti mes a day *Any questions, please call Dr. Martines's office at Patient advised of their right to have diagnostic testing, health care treatment, and/or se rvices at a facility other than [facility]. in this encounter Progress Notes Malaika Martines MD - 11/26/2017 1100 PDTFormatting of this note may be different from the original. Patient: Jennyfer Cochran Medical Record: [id number] Date of Services: 11/26/2017 Referring Doctor: Antwon [...] CEREBELLAR EXAMINATION: There is no dysmetria on agcroj-gp-nyib test. Miscellaneous: There is no cogwheeling noted. [...] | | | | | [place] [address] | | | | | | [phone] | | | | | | | [...]
--- OUTSIDE RECORDS SUMMARY | ~2018-01-02 | XMS | Encounter Summary ---
Demographics + + + | Address | [address] | | | [place] [address] | + + + | Home Phone | | + + + | Preferred Language | Unknown | + + + | Marital Status | Single | + + + | Restorationist Affiliation | Unknown | + + + | Race | Unknown | + + + | Ethnic Group | Unknown | + + + Author + + + | Author | [facility] [place] [facility] | | | and Earl[place] | + + + | Organization | [facility] [place] [facility] | | [...] Team Providers + +------+ + | Care Hydrographer Name | Role | Phone | + [...] | | | | | Procedures | [place], | [place], [place] | | | | | Evaluate and | [place] | [address] Phone: | | | | | Treat | [address] | [phone] | | | | | | Phone: | Fax: | | | | | | [phone] | [phone] | | | | | | Fax: | | | | | | | [phone] | | +--------+ + + + + [...] | [address], | [place] [address] | | | | | [place] [address] | [phone] | | | | | [phone] | | | +--------+---------+ + + + [...] Instructions - Malaika Martines MD - 10/21/2017 1343 PSTYou have the following tests/procedures ordered. At [facility] Radiology : Brain MRI EEG routine Blood work at [facility]: CMP, TSH, gabapentin level *Any questions, please call Dr. Martines's office at Patient advised of their right to have diagnostic testing, health care treatment, and/or se rvices at a facility other than [facility], [facility]. in this encounter Progress Notes Malaika Martines MD - 10/21/2017 9516 PSTFormatting of this note may be different from the original. Patient: Jennyfer Cochran Medical Record: [id number] Date of Services: 10/21/2017 Referring Doctor: Antwon [...] CEREBELLAR EXAMINATION: There is no dysmetria on pgfjmu-be-wpwv test. Miscellaneous: During this visit, the patient [...] | | | | | [place] [address] | | | | | | [phone] | | | | | | | [...] GLOMERULAR FILTRATION | >=60 mL/min/1.73m2 | | TRINIDADIAN | RATE,ESTIMATED mL/min/1.86m5Hksa than | | | | 60 Chronic [...] | + + + | Blood | [facility] [address] [place], | | | [place] [address] | + + + TSH (10/21/2017 1442) + +-------+ + | Component | Value | Ref Range | + +-------+ + | TSH | 1.64 | 0.36 - 3.74 uIU/mL | + +-------+ + + + + | Specimen | Performing Laboratory | + + + | Blood | [facility] [address] [place], | | | [place] [address] | + + + in this encounter Visit Diagnoses + + | Diagnosis | + + | Tremor | + + | Abnormal involuntary movements | + +
--- OUTSIDE RECORDS SUMMARY | ~2018-01-02 | XMS | Encounter Summary ---
Demographics + + + | Address | [address] | | | [place] [address] | + + + | Home Phone | | + + + | Preferred Language | Unknown | + + + | Marital Status | Single | + + + | Worship Affiliation | Unknown | + + + | Race | Unknown | + + + | Ethnic Group | Unknown | + + + Author + + + | Author | [facility] [place] [facility] | | | and [place] | + + + | Organization | [facility] | | | [...] Team Providers + +------+ + | Care Exhaust Worker Name | Role | Phone | + [...] | | | | | | [place] [address] | | | | | | [phone] | | | +--------+ + + + [...] | | | | | [place] [address] | | | | | | [phone] | | | | | | | | +--------+---------+ + + + as of this encounter Visit Diagnoses Not on filein this encounter"
--- OUTSIDE RECORDS SUMMARY | ~2018-01-02 | XMS | Clinical Summary ---
Demographics + + + | Address | [address] | | | [place] [address] | + + + | Home Phone | | + + + | Preferred Language | Unknown | + + + | Marital Status | Single | + + + | Rastafari Affiliation | Unknown | + + + | Race | Unknown | + + + | Ethnic Group | Unknown | + + + Author + + + | Author | [facility] [place] [facility] | | | and [place] | + + + | Organization | [facility] [place] [facility] [...] Team Providers + +------+ + | Care Torpedo Worker Name | Role | Phone | [...] | | | | | [place] [address] | | | | | | [phone] | | | | | | | [...] Martines, 11/29/20179:48 Electronically signed | + + [facility] Lab Referral (10/21/2017 1443) + + + + | Component | Value | Ref Range | + + + + | Result | Comment: See Media tab for scanned image. | | + + + + + + + | Specimen | Performing Laboratory | + + + | Blood | REFERENCE LAB [facility] [address] | | | [place] [address] | + + + TSH (10/21/2017 1442) + +-------+ + | Component | Value | Ref Range | + +-------+ + | TSH | 1.64 | 0.36 - 3.74 uIU/mL | + +-------+ + + + + | Specimen | Performing Laboratory | + + + | Blood | [place] [facility] [address], | | | [place] [address] | + + + Comprehensive Metabolic Panel [...] >=60 mL/min/1.73m2 | | EMIRATI | RATE,ESTIMATED mL/min/1.47c2Eyso than | | | | 60 Chronic [...] | + + + | Blood | [facility] [address] [place], | | | [place] [address] | + + + from Last 3 [...] | MODA | xxxxxxxx | Medica | [phone] | | | MEDICAID HMO | HEALTH [...] Self | [birth year] | Home: | [address] | | | al/Fam | | 1955 | [phone] | [address] [place] | | | [place] | | | [address] | [address] | + +--------+ +--------+ + +
--- OUTSIDE RECORDS SUMMARY | ~2018-01-02 | XMS | Encounter Summary ---
Demographics + + + | Address | [address] | | | [place] [address] | + + + | Home Phone | | + + + | Preferred Language | Unknown | + + + | Marital Status | Single | + + + | Lutheran Affiliation | Unknown | + + + | Race | Unknown | + + + | Ethnic Group | Unknown | + + + Author + + + | Author | [facility] | | | and [place] | + + + | Organization | [facility] | | | and [...] Team Providers + +------+ + | Care Vehicle Assembler Name | Role | Phone | + [...] Lab Results | | 2018 | | [facility] | | | | | | CLINIC [address] | | | | | | [address] [place], | | | | | | [place] [address] | | | | | | [phone] | | | +--------+ + + + [...] | | | | | [place], [place] [address] | | | | | | [phone] | | | | | | | | +--------+---------+ + + + as of this encounter Visit Diagnoses Not on filein this encounter"
--- NOTE | 2018-01-02 22:34 | NUR ---
PT ADMITTED TO ROOM 120 FROM ED. VIA STRETCHER. PT ORIENTED TO ROOM, NON VERBAL AT TIMES, ASNWERED SOME ADMIT QUESTIONS APPROPRIATELY BUT OTHERS JUST DECLINED TO TALK OR NOT ANSWERED THEM. SOME INFORMATION OBTAINED FROM PT, SOME FROM OLD MEDICAL RECORDS. PT COOPERATIVE, CHAPOLIVIA GIVEN AT HER EQUETS. NO C/O PAIN OR S/SX FACIAL GRIMACING NOTED. BED ALARM ON, FALL PRECAUTIONS INPLACE. PT CAME WITH SEVERAL BOTTLES OF HOME MEDS, WILL SEND TO PHARMACY. WILL CONTINUE TO REINFORCE TREATMENT/PROCEDURES WITH EACH INTERACTION AND GIVE PT TIME TO ANSWERE QUESTIONS
--- NOTE | 2018-01-02 23:22 | NUR ---
RECEIVED REPORT FROM OSMANY MAHONEY. PT IN BED. ASSESSMENT COMPLETED. LUNGS SOUND DIMINISHED. PT WAS UNABLE TO ANSWER ANY QUESTIONS. PT JUST LOOKS AND OCATIONALLY SHAKES HEAD "YES". PT IS ABLE TO FOLLOW COMMANDS LIKE SITTING UP AND SQUEEZE MY HANDS. PT IS NOT ABLE TO VERBALIZE ANY NEEDS AT THIS TIME. BED ALARM IN PLACE. CALL LIGHT WITHIN REACH. VISIBLE FROM NURSING STATION.
--- NOTE | 2018-01-03 00:12 | NUR ---
PT APPEARS TO BE SLEEPING .RESLPIRATIONS EQUAL AND NONLABORED. HR 55. TELE IN PLACE. BED ALARM ON. FLUIDS INFUSING @ 125ML/HR. BED IN LOWEST POSITION. BED RAILS UP. PT VISIBLE FROM NURSING STATION.
--- NOTE | 2018-01-03 02:00 | NUR ---
PT APPEARS TO BE SLEEPING. VS STABLE AT THIS TIME. RESPATIONS EQUAL AND NONLABORED. B/P SLIGHTLY ELEVATED BUT DECREASING FROM PREVIOUS READINGS. PT VISABLE FROM NURSING STATION. CALL LIGHT WITHIN REACH.
--- NOTE | 2018-01-03 02:04 | NUR ---
VITALS AND I&OS DONE AND CHARTED. BEDSIDE TABLE AND CALL LIGHT WITHIN REACH.
--- NOTE | 2018-01-03 04:54 | NUR ---
PT WOKE UP AND PULLED IV OUT OF ARM. PT WAS ABLE TO ANSWER QUESTION AND WAS ORIENTED TO PLACE. PT REPORTS SHE DOESNT REMEMBER COMING TO THE FLOOR LAST NIGHT. LATER STATED, "I'M FAKING IT." WHEN ASKED WHAT SHE WAS FAKING THE PT DID NOT RESPOND. PT REPORTS SHE DOES NOT FEEL LIKE SHE NEEDS TO USE THE BATHROOM. ORIENTED PT TO ROOM. EDUCATED ON USE OF CALL LIGHT, FALL PREVENTION, AND SAFETY. PT RESTING NOW. CALL LIGHT WITHIN REACH. VISIBLE FROM NURSING STATION.
--- NOTE | 2018-01-03 06:35 | NUR ---
PT CAME FROM ER NONVERBAL. WOKE UP IN THE AM NOT REMEMBERING COMING TO THE FLOOR. IV IN LEFT FORARM. PT WAS ABLE TO COMMUNICATE WHEN SHE WOKE UP. PT ON TELE 8. BS LAST NIGHT WAS 153. CLEAR LIQ DIET. SBA WITH FWW.
--- NOTE | 2018-01-03 06:55 | EKG ---
[facility] [address] [facility] [place] [address] Signed Normal sinus rhythm Possible Left atrial enlargement Nonspecific T wave abnormality Prolonged QT Abnormal ECG When compared with ECG of 30-DEC-2017 14:14, QT has lengthened Confirmed by NAOMI CHIANG MD ([id number]) on 01/03/2018 6:55:14 AM Electronically Signed By: NAOMI CHIANG MD 01/03/18 0655 PATIENT NAME: RORYRAFAELRODRICK [place] Electrocardiogram DATE OF : 53 PHYSICIAN: NAOMI CHIANG MD REPORT #: [id number] REPORT IS CONFIDENTIAL AND NOT TO BE RELEASED WITHOUT AUTHORIZATION
--- NOTE | 2018-01-03 08:17 | NUR ---
RN IN ROOM ASSISTING PATIENT WITH BREAKFAST.
[2018-01-03] MEDS ORDERED: ATROVENT HFA12.9 GM INH (08:18)
[2018-01-03] MEDS ORDERED: GABAPENTIN300 MG PO (08:20)
[2018-01-03] MEDS ORDERED: BUSPIRONE HCL10 MG PO (08:54)
[2018-01-03] MEDS ORDERED: ADVAIR 250-501 EACH INH (08:54)
--- NOTE | 2018-01-03 09:45 | NUR ---
0935 PATIENT STANDING AT BEDSIDE AND HAD PULLED OUT HER IV. PATIENT HAS BEEN NON-VERBAL ALL MORNING BUT IS GIVING SHORT ANSWERS TO QUESTIONS AT THIS TIME. PATIENT ESCORTED INTO THE PATHROOM WITH 1 PERSON ASSIST AND VOIDED 375 IN THE HAT AND HAD A FORMED DARK BROWN MEDIUM STOOL. PER IV FLUIDS AND TELE DC'D. PATIENTS LINEN CHANGED AND PATIENT BACK TO BED WITH BED ALARM ON.PATIENT DOES NOT NOW THE DATE OR HOW LONG IT HAS BEEN SINCE SHE HAS TAKEN ANY OF HER MEDICATIONS.
--- NOTE | 2018-01-03 09:56 | NUR ---
VITALS AND I AND O, BACK IN BED.
[2018-01-03] MEDS ORDERED: CYMBALTA30 MG PO (10:40)
[2018-01-03] MEDS ORDERED: CYMBALTA60 MG PO (10:40)
[2018-01-03] MEDS ORDERED: CLONAZEPAM0.5 MG PO (10:43)
--- NOTE | 2018-01-03 14:12 | NUR ---
IN TO DO PATIENT VITAL SIGNS, PT HAD INCONTINCE EPISODE IN BED. CLEANED PT AND PUT AN ATTENDS ON HER. BED ALARM ON, CALL LIGHT WITHIN REACH. BED VISIBLE FROM NURSING STATION. NO FURTHER NEEDS AT THIS TIME.
--- NOTE | 2018-01-03 16:57 | NUR ---
PT BLOOD PRESSURE NOT WITHIN NORMAL LIMITS. MARU HANLEY NOTIFIED.
== END 2018-01-03 17:05 | disposition home or self-care (01) | DRG 72 ==
LOC: ED 18:51 → MS 18:53
PROVIDERS: ADMIT Internal Medicine
DX: G93.41 Metabolic encephalopathy (principal); F20.9 Schizophrenia, unspecified; F31.9 Bipolar disorder, unspecified; I10 Essential (primary) hypertension; E78.5 Hyperlipidemia, unspecified; E11.9 Type 2 diabetes mellitus without complications; T43.95XA Adverse effect of unspecified psychotropic drug, initial encounter; G24.01 Drug induced subacute dyskinesia; G25.70 Drug induced movement disorder, unspecified; E03.9 Hypothyroidism, unspecified; J44.9 Chronic obstructive pulmonary disease, unspecified; Z87.891 Personal history of nicotine dependence; Z79.1 Long term (current) use of non-steroidal anti-inflammatories (NSAID); Z79.82 Long term (current) use of aspirin; Z79.4 Long term (current) use of insulin; Z79.891 Long term (current) use of opiate analgesic; Z79.899 Other long term (current) drug therapy
CPT/HCPCS: 36415; 70450; 71045; 80048; 80053; 83735; 84100; 85025; 93005; 93010; 99285; G0480; J7030